=== PATIENT | male | born 1945 | race Caucasian/White ===

== ENCOUNTER 2023-11-30 14:08 | Outpatient (CLI) | payer MEDICARE, SELFPAY ==
[2023-11-30 10:27] LABS: HCT 40.8 % (40.0-50.0); HGB 14.1 g/dL (13.5-17.5); MCH 31.5 pg (27.0-33.0); MCHC 34.6 % (32.0-36.0); MCV 91 fL (80-95); MPV 10.1 fL (8.0-11.0); Platelet Count 216 10^3/uL (130-400); RBC 4.48 10^6/uL (4.36-5.78); RDW 14.6 % (11.8-14.1); RDW-SD 48.8 fL
[2023-11-30 10:43] LABS: Absolute Eosinophil Count 0.03 10^3/uL (0.0-0.7); Absolute Lymphocyte Count 0.64 10^3/uL (1.2-3.4); Absolute Monocyte Count 0.14 10^3/uL (0.1-0.8); Absolute Neutrophil Count 0.91 10^3/uL (1.2-6.7); Atypical Lymphocytes % 3 %; Bands % 4 %; Diff Comment Manual Differential; RBC Morphology Normal
[2023-11-30 10:47] LABS: WBC 1.72 10^3/uL (4.4-10.8)
[2023-11-30 10:54] LABS: ALT 70 U/L (16-63); AST 20 U/L (15-37); Albumin 3.3 g/dL (3.4-5.0); Alkaline Phosphatase 106 U/L (46-116); Anion Gap 5.5 mmol/L (3-11); BUN 22 mg/dL (7-18); Bilirubin, Total 0.88 mg/dL (0.2-1.0); CO2 29.5 mmol/L (21.0-32.0); Calcium 8.6 mg/dL (8.5-10.1); Chloride 102 mmol/L (98-107); Glucose 117 mg/dL (74-106); LDH 196 U/L (85-227); Potassium 4.2 mmol/L (3.5-5.1); Sodium 137 mmol/L (136-145); Total Protein 6.6 g/dL (6.4-8.2); Uric Acid 3.2 mg/dL (3.5-7.2)
== END 2023-11-30 14:09 | disposition home or self-care (01) ==
LOC: LBO 14:09
PROVIDERS: Visit Provider Nurse Practitioner Adult Health
DX: C83.30 Diffuse large B-cell lymphoma, unspecified site (principal)
CPT/HCPCS: 36415; 80053; 83615; 84550; 85025

== ENCOUNTER 2023-12-08 01:44 | Outpatient (RCR) | payer MEDICARE, SELFPAY ==
[2023-12-03 10:34] LABS: HCT 38.4 % (40.0-50.0); HGB 13.1 g/dL (13.5-17.5); MCH 31.6 pg (27.0-33.0); MCHC 34.1 % (32.0-36.0); MCV 93 fL (80-95); MPV 9.5 fL (8.0-11.0); Platelet Count 209 10^3/uL (130-400); RBC 4.14 10^6/uL (4.36-5.78); RDW 15.5 % (11.8-14.1); RDW-SD 50.2 fL; WBC 9.28 10^3/uL (4.4-10.8)
[2023-12-03 10:53] LABS: Absolute Eosinophil Count 0.09 10^3/uL (0.0-0.7); Absolute Lymphocyte Count 1.76 10^3/uL (1.2-3.4); Absolute Monocyte Count 0.74 10^3/uL (0.1-0.8); Atypical Lymphocytes % 3 %; Bands % 10 %; Diff Comment Manual Differential; Metamyelocytes % 3; RBC Morphology Normal
== END 2023-12-19 23:59 | disposition home or self-care (01) ==
LOC: INF 01:44
PROVIDERS: Visit Provider Internal Medicine Hematology & Oncology
DX: C83.32 Diffuse large B-cell lymphoma, intrathoracic lymph nodes (principal); Z45.2 Encounter for adjustment and management of vascular access device
CPT/HCPCS: 36415; 86850; 86900; 86901; 85025

== ENCOUNTER 2023-12-09 19:23 | Inpatient (IN) | payer MEDICARE, SELFPAY ==
[2023-12-09] VITALS (33 sets, daily range): BP systolic 95–129; BP diastolic 56–69; PULSE 97–108; RESP 12–29; TEMP 37; O2SAT 91–96
[2023-12-09 21:07] LABS: HGB 13.3 g/dL (13.5-17.5); Lactate 0.8 mmol/L (0.6-1.4); MCH 32.2 pg (27.0-33.0); MCV 92 fL (80-95); MPV 8.9 fL (8.0-11.0); Platelet Count 249 10^3/uL (130-400); RBC 4.13 10^6/uL (4.36-5.78); RDW-SD 52.9 fL; WBC 19.08 10^3/uL (4.4-10.8)
--- NOTE | 2023-12-09 21:15 | W.ED.GENAD ---
Discharge Plan Discharge Details Chief Complaint: RespSymp Clinical Impression: Large B-cell lymphoma Primary Care Provider: Unknown,Unknown ED Provider: Tiffanie Mcmillan Home Meds and New Rx's Prescriptions: No Action Eliquis 5 mg tablet 10 mg PO BID Patient Comments: TAKE TWO TABLETS BY MOUTH TWICE A DAY FOR 6 DAYS, THEN TAKE ONE TABLET BY MOUTH TWICE A DAY FOR 24 DAYS acyclovir 400 mg tablet 400 mg PO BID Patient Comments: TAKE ONE TABLET BY MOUTH TWICE A DAY codeine sulfate 15 mg tablet 15 mg PO BID PRN Patient Comments: TAKE ONE TABLET BY MOUTH TWICE A DAY NEEDED FOR PAIN OR EXCESSIVE COUGHING loratadine 10 mg tablet 10 mg PO DAILY finasteride 5 mg tablet 5 mg PO DAILY pantoprazole 40 mg tablet,delayed release (DR/EC) 40 mg PO DAILY Patient Comments: TAKE ONE TABLET BY MOUTH EVERY DAY HPI General Date/Time Provider Initiated Documentation: 12/09/23 19:58. HPI Narrative: Abdirahman is a 78-year-old male with large B-cell lymphoma, hypertension, and anticoagulation for blood clots who presents to the emergency department today for evaluation of fever. He reports that he has had a dry cough with sore throat and congestion for the last 3 to 4 days. This afternoon he took his temperature, found it was 101.3 tympanic, treated with Tylenol at home after discussion with oncologist. They did recommend that he come in to get evaluated due to the cough. He denies headache, dizziness, chest pain, shortness of breath, nausea/vomiting, abdominal pain, change in bowel or bladder function, pedal edema. Overall he says he is feeling well aside from the cough. he was diagnosed with large B-cell lymphoma a month ago after developing symptoms of cough, anorexia, and fatigue. His cough had initially disappeared for 10 days after treatment with dexamethasone, but has recently reappeared. He is being treated at [facility], is scheduled to have his port placed tomorrow for inpatient R-CHOP treatment (chemotherapy regimen). His reports that he has had tachycardia since diagnosis, heart rate has been consistently in the 100s range. Physical exam very reassuring. Patient is alert and oriented, no acute distress. He does have a frequent dry cough. Easy work of breathing, lung sounds clear bilaterally. Normal heart sounds, mild tachycardia with heart rate in the low 100s noted. Abdomen soft, nondistended, nontender to palpation. No pedal edema. DDx includes but is not limited to: Pneumonia, viral illness such as COVID-19, metastasis less likely I independently interpreted the following tests: CBC remarkable for white cell count elevated at 19.08. Slightly elevated BUN to creatinine ratio 1.3-26, likely mild dehydration. AST, ALT, and alk phos slightly elevated as well. Chest x-ray does show infiltrates to the left lobe. While in the emergency department Abdirahman received IV vancomycin (to cover hospital-acquired pneumonia during recent hospitalization), cefepime, and azithromycin. Discussed case with Dr. Albarran, [facility] oncology. Reviewed patient presentation and labs. She recommends continuing antibiotics, trending inflammatory markers, and consulting with [facility] as needed for any changes. She does not feel patient needs to be transferred to [facility] at this time. Presented case to Dr. Mai, hospitalist. He is agreeable to admit patient to [facility] service. Related Data Home Medications ?Medication ?Instructions ?Recorded ?Confirmed acyclovir 400 mg tablet 400 mg PO BID 12/09/23 12/09/23 apixaban 5 mg tablet (Eliquis) 10 mg PO BID 12/09/23 12/09/23 codeine sulfate 15 mg tablet 15 mg PO BID PRN 12/09/23 12/09/23 finasteride 5 mg tablet 5 mg PO DAILY 12/09/23 12/09/23 loratadine 10 mg tablet 10 mg PO DAILY 12/09/23 12/09/23 pantoprazole 40 mg tablet,delayed 40 mg PO DAILY 12/09/23 12/09/23 release Allergies Allergy/AdvReac Type Severity Reaction Status Date / Time No Known Allergies Allergy Verified 12/09/23 22:49 General Stated Complaint: RespSymp CLARIBEL: 3 Review of Systems Narrative: see HPI Exam Const General: cooperative, healthy appearing, comfortable, no acute distress, well developed and well groomed Nutritional Appearance: average body habitus Resp Effort & Inspection: normal respiratory effort, able to speak in complete sentences and cough Auscultation: clear to auscultation bilaterally Cardio Rate: tachycardic Rhythm: regular rhythm Pulses: radial pulses present GI Inspection: normal to inspection and non-distended Palpation: soft, not firm and nontender Skin General skin exam: no rashes or lesions noted Neuro General: patient alert, patient oriented x3, moves all extremities and no focal motor deficits Course Vital Signs Vital signs: Vital Signs Temperature 37.0 C 12/09/23 19:28 Pulse 108 H 12/09/23 19:28 Respiratory Rate 20 12/09/23 19:28 Blood Pressure 101/61 12/09/23 19:28 Pulse Oximetry 92 12/09/23 19:28 Temperature 37.0 C 12/09/23 19:28 Temperature Source Oral 12/09/23 19:28 Pulse 108 H 12/09/23 19:28 Respiratory Rate 20 12/09/23 19:28 Blood Pressure 101/61 12/09/23 19:28 Blood Pressure Position Sitting 12/09/23 19:28 Pulse Oximetry 92 12/09/23 19:28 Oxygen Delivery Method Room Air 12/09/23 19:28 Oxygen Flow Rate 0 12/09/23 19:28 Lab/Test Results Lab/Test Results: 12/09/23 20:18 Pharynx Group A Streptococcus Culture - Pending 12/09/23 19:58 Blood Blood Culture - Pending 12/09/23 19:58 Blood Blood Culture - Pending Laboratory Tests Range/Units 12/09/23 20:58 VBG Lactate (0.6-1.4) mmol/L 0.8 POC Strep Test-MITA(Rapid) Start: 12/09/23 20:16 Freq: .Rapid Strep Test Status: Active Protocol: Document 12/09/23 20:17 CB (Rec: 12/09/23 20:17 CB [id number]) Strep test-MITA(Rapid)-POC POC-Strep test-MITA (Rapid) Negative POC-Strep test-MITA (Rapid) Negative Medical Decision Making Quality:SDOH Health Related Social Needs: No Data to Display PFSH All Active Problems (Updated 12/09/23 @ 21:16 by Tiffanie Barnes) Large B-cell lymphoma (Acute) Wears hearing aid in both ears (Acute) Sensorineural hearing loss, bilateral (Acute) Sensory hearing loss, bilateral (Acute) Social History (System 02/20/22 @ 07:34 by Yas Don) Smoking/Tobacco Use Status: Never Smoking risk assessment performed?: Yes Substance use type: does not use
[2023-12-09 21:26] LABS: ALT 99 U/L (16-63); AST 42 U/L (15-37); Albumin 2.6 g/dL (3.4-5.0); Alkaline Phosphatase 124 U/L (46-116); Anion Gap 8.3 mmol/L (3-11); BUN 26 mg/dL (7-18); Bilirubin, Total 0.88 mg/dL (0.2-1.0); CO2 23.7 mmol/L (21.0-32.0); CREATININE 1.3 mg/dL (0.70-1.30); Chloride 101 mmol/L (98-107); Estimated GFR 56.93 (mL/min/1.73m2); Glucose 130 mg/dL (74-106); Magnesium 1.9 mg/dL (1.8-2.4); Potassium 4.1 mmol/L (3.5-5.1); Sodium 133 mmol/L (136-145); Total Protein 6.6 g/dL (6.4-8.2)
[2023-12-09 21:38] LABS: Absolute Lymphocyte Count 0.95 10^3/uL (1.2-3.4); Absolute Monocyte Count 1.14 10^3/uL (0.1-0.8); Atypical Lymphocytes % 3 %; Bands % 4 %; Metamyelocytes % 3
[2023-12-09 21:39] LABS: Absolute Neutrophil Count 16.41 10^3/uL (1.2-6.7); Diff Comment Manual Differential; RBC Morphology Normal
[2023-12-09 21:46] LABS: Bilirubin Negative (Negative); Blood Trace-lysed (Negative); Clarity Clear (Clear); Glucose Negative (Negative); Ketones Negative (Negative); Leukocyte Esterase Negative (Negative); Nitrite Negative (Negative); Urobilinogen 0.2 mg/dL (Up to 0.2); pH 5.5 (5-8)
[2023-12-09 22:02] LABS: Bacteria Rare HPF (Negative); C & S Indicated? No; Casts 0-2 Hyaline LPF (Negative); Crystals Negative HPF (Negative); Epithelial Cells Rare HPF (Negative); Mucus Trace (Negative); Other Cells Rare Transitional (Negative); RBC 0-2 HPF (0-2); WBC 0-2 HPF (0-5)
--- NOTE | 2023-12-09 22:15 | DI.RAD_ITS ---
Exam(s) XR CHEST 2V PA LATERAL EXAM: XR CHEST 2V PA LATERAL CLINICAL HISTORY: fever, cough TECHNIQUE: 2D digital imaging was performed. Two views. COMPARISON: None FINDINGS: HEART: Normal size. Aorta: Not dilated. PULMONARY VASCULATURE: Normal. MEDIASTINUM: Unremarkable. LUNGS: Diffusely increased patchy densities involving the left lung. The right lung appears clear. Slight left-sided volume loss. PLEURAL SPACE: No pleural effusion or pneumothorax. BONE:Degenerative changes in the thoracic spine and shoulders. Prior surgical resection of the left distal clavicle. SOFT TISSUES: Unremarkable. IMPRESSION: Diffuse left-sided pulmonary infiltrates. DATA REPOSITORY: RADIATION DOSE DELIVERED:
[2023-12-09] MEDS: CEFEPIME 2 GM in Normal Saline 100 ML IVPB (22:43)
[2023-12-09] MEDS: AZITHROMYCIN 500 MG in Normal Saline 250 ML 250 MG IVPB (23:22)
[2023-12-09 23:35] LABS: ESR 51 mm/hr (0-20)
[2023-12-09 23:41] LABS: C-Reactive Protein 13.56 mg/dL (<or=0.5)
[2023-12-09] MEDS: Normal Saline - Diluent 50 ML VIAL IJ (23:54)
[2023-12-09] MEDS: Omnipaque 350 MG/ML 100 ML BTL IJ (23:55)
[2023-12-09] MEDS: Normal Saline 1,000 ML 125 ML IV (23:56)
[2023-12-09 23:59] LABS: Procalcitonin 0.1 ng/mL
[2023-12-10] VITALS (65 sets, daily range): BP systolic 86–152; BP diastolic 34–95; PULSE 98–120; RESP 11–33; TEMP 36.7–38.5; O2SAT 89–97; BMI 23.8
--- NOTE | 2023-12-10 00:12 | HPE_ITS ---
Date of service: 12/10/23 Time of Service: 00:17 Assessment and Plan Assessment and plan (1) Fever: Status: Acute Assessment and plan: Cough and fever, with leukocytosis and elevated inflammatory marking, in setting of atypical CXR findings. In one respect one could cohere this as pneumonia, but I would also wonder if it is possible that the symptom complex may be solely due to underlying tumor. Will presumptively treat with empiric antibiotics -- I think cefepime and Zithro will be adequate for now, will hold further Vanco pending cxx and nasal swab. ER has ordered CT for further evaluation of chest in meantime, and swab for viral illness. History of Present Illness History of Present Illness Chief Complaint: cough Narrative: 78 male with recent diagnosis lymphoma presenting last month with dry cough and large right perihilar mass. States he was treated with Dexamethasone with resolution of cough. Comes in tonight with 2 days of dry cough, similar to prior episode but less intense, and today fever to 101.3. No CP or SOB. In ER w/u of note for afebrile with O2 sats in mid 90s, white count 19 and CXR showing no definite infiltrate but generally increased interstitial marking on left (my read, formal read pending). CRP 13 and ESR 51. Blood cxx obtained and patient ordered for Vanco, Cefepime and Zithro. I was asked to evaluate for admission. Patient states that aside from cough he feels perfectly well. Note that in ER note it is re[ported that he also had sore throat and head congestion but this he denies to me. Review of Systems Narrative: per HPI PFSH All Active Problems (Updated 12/10/23 @ 00:27 by Laci Mai MD) Fever (Acute) Pneumonia (Acute) Large B-cell lymphoma (Acute) Wears hearing aid in both ears (Acute) Sensorineural hearing loss, bilateral (Acute) Sensory hearing loss, bilateral (Acute) Social History Smoking/Tobacco Use Status: Never Smoking risk assessment performed?: Yes Substance use type: does not use Meds Allergies and Home Medications Allergies Allergy/AdvReac Type Severity Reaction Status Date / Time No Known Allergies Allergy Verified 12/09/23 22:49 Home Medications ?Medication ?Instructions ?Recorded ?Confirmed ?Type acyclovir 400 mg tablet 400 mg PO BID 12/09/23 12/09/23 History apixaban 5 mg tablet (Eliquis) 10 mg PO BID 12/09/23 12/09/23 History codeine sulfate 15 mg tablet 15 mg PO BID PRN 12/09/23 12/09/23 History finasteride 5 mg tablet 5 mg PO DAILY 12/09/23 12/09/23 History loratadine 10 mg tablet 10 mg PO DAILY 12/09/23 12/09/23 History pantoprazole 40 mg tablet,delayed 40 mg PO DAILY 12/09/23 12/09/23 History release Exam Narrative Exam Narrative: 101/61, 108 (note that he reports he always has pulse in this range), 37.0, 20 92% RA (95% during my visit). HEENT atraumatic; neck supple w/o adeopathy; lungs clear; heart RRR w/o MRG; abdomen soft and NT; extremities w/o edema; neuro Ox3, lucid, moves all 4s Results Labs 12/09/23 20:58 12/09/23 20:58 Labs: Laboratory Results - last 24 hr 12/09/23 20:58 WBC 19.08 H RBC 4.13 L Hgb 13.3 L Hct 38.0 L MCV 92 MCH 32.2 MCHC 35.0 RDW 16.0 H Plt Count 249 MPV 8.9 Immature Gran % See Differential Neutrophils % 82.0 Band Neutrophils % 4 Lymphocytes % 2.0 Atypical Lymphs % 3 Monocytes % 6.0 Eosinophils % 0.0 Basophils % 0.0 Metamyelocytes % 3 Nucleated RBC % 0.0 Absolute Neutrophils 16.41 H Absolute Lymphocytes 0.95 L Absolute Monocytes 1.14 H Absolute Eosinophils 0.00 Absolute Basophils 0.00 RBC Morphology Normal ESR 51 H VBG Lactate 0.8 Sodium 133 L Potassium 4.1 Chloride 101 Carbon Dioxide 23.7 Anion Gap 8.3 BUN 26 H Creatinine 1.3 Est GFR (CKD-EPI 2020) 56.93 Glucose 130 H Calcium 9.0 Magnesium 1.9 Total Bilirubin 0.88 AST 42 H ALT 99 H Alkaline Phosphatase 124 H C-Reactive Protein 13.56 H Total Protein 6.6 Albumin 2.6 L Procalcitonin 0.1 Urine Color Yellow Urine Clarity Clear Urine pH 5.5 Ur Specific [place] 1.020 Urine Protein 30 H Urine Ketones Negative Urine Blood Trace-lysed H Urine Nitrite Negative Urine Bilirubin Negative Urine Urobilinogen 0.2 Ur Leukocyte Esterase Negative Urine RBC 0-2 Urine WBC 0-2 Ur Epithelial Cells Rare Urine Crystals Negative Urine Bacteria Rare Urine Casts 0-2 Hyaline Urine Mucus Trace Urine Other Rare Transitional Ur Culture Indicated? No Urine Glucose Negative Last Vital Signs Temp 37.0 C 12/09/23 19:28 Pulse 108 H 12/09/23 19:28 Resp 20 12/09/23 19:28 BP 101/61 12/09/23 19:28 Pulse Ox 92 12/09/23 19:28 Time Spent Time spent with Patient: 40-54 minutes Time was spent: preparing to see the patient(eg.review tests), obtaining and/or reviewing separately [facility], ordering medications,tests, procedures, referring, communicating with other health manager long term care and indepentently interpreting results
--- NOTE | 2023-12-10 00:20 | DI.VRAD_ITS ---
PROCEDURE INFORMATION: Exam: XR Chest Exam date and time: 12/09/2023 11:01 PM Age: 78 years old Clinical indication: Other: Fever, cough TECHNIQUE: Imaging protocol: Radiologic exam of the chest. Views: 2 views. COMPARISON: No relevant prior studies available. FINDINGS: Limitations: Patient positioning is rotated. Lungs: There is diffusely increased hazy pulmonary density on the left. Pleural spaces: No pleural effusion or pneumothorax is demonstrated. Heart/Mediastinum: The heart appears normal in size. There is leftward displacement of the heart, possibly from rotated patient positioning although mediastinal shift is not confidently excluded. Bones/joints: The visualized bony structures appear grossly intact. There are osteophytes along the thoracic spinal margin. There is partial resorption of the distal left clavicle. There is severe degenerative change at the right acromioclavicular joint. There is mild asymmetric rib crowding on the left. IMPRESSION: Diffusely increased hazy pulmonary density on the left. An acute pulmonary infection could have this appearance. Atelectasis of the left upper lobe would be an alternative consideration. Alternative pathology is not excluded. Clinical correlation is recommended. Dictated and Authenticated by: Kang Rodriguez MD. Ordering:RUBIO Moreno MD
[2023-12-10 00:38] LABS: COVID-19 PCR Negative (Negative); Influenza A PCR Negative (Negative); Influenza B PCR Negative (Negative); RSV PCR Negative (Negative)
--- NOTE | 2023-12-10 00:45 | DI.CT_ITS ---
Exam(s) CT CHEST W EXAM: CT CHEST W CLINICAL HISTORY: cough, abnormal CXR TECHNIQUE: Imaging Protocol: Axial computed tomography images with coronal and sagittal reformatted images were created and reviewed CONTRAST MATERIAL: Intravenous: Omnipaque 350 Contrast volume:70 ml. COMPARISON: CR,XR XR CHEST 2V PA LATERAL from 12/09/2023 FINDINGS: Pulmonary parenchyma: Diffuse hazy ground-glass opacities involving the left lung. No consolidation. No dominant measurable mass. Scattered calcified granulomas in the right middle and lower lobes. Tracheobronchial tree: No bronchiectasis or mucous plugging. Mediastinum and Renetta: Confluent mass versus adenopathy in the right paratracheal and subcarinal regio n with heterogeneous appearance and calcifications. Approximate measurements 4.2 x 3.9 x 7.3 cm. Ri ght paratracheal adenopathy/mass measures 1.6 x 3 0 cm. Pleura: Trace right pleural effusion. No pneumothorax. Heart: The heart is not dilated. No coronary artery calcifications are seen. Aorta: Thoracic aorta non-dilated. No significant atherosclerotic changes. Pulmonary arteries: No gross evidence of emboli. Upper abdomen: No acute findings. Status post cholecystectomy. Right renal cysts. Bones: Degenerative changes in the spine. Soft tissues: Calcifications in left axilla. IMPRESSION: Diffuse ground-glass infiltrate involving the left lung. No focal consolidation. Mass versus adenopathy the in the right subcarinal and right paratracheal regions. Unexpected findings RADIATION DOSE DELIVERED: Total DLP DATA REPOSITORY: All CT scans at this facility are submitted to the National Radiology Data Registry (NRDR) Dose Index Registry (DIR) with the [employer] (ACR). RADIATION OPTIMIZATION: All CT scans at this facility use at least one of these dose optimization te chniques: automated exposure control; mA and/or kV adjustment per patient size (includes targeted exa ms where dose is matched to clinical indication); or iterative reconstruction.
[2023-12-10 00:47] LABS: Source Nasopharynx
--- NOTE | 2023-12-10 01:28 | DI.VRAD_ITS ---
PROCEDURE INFORMATION: Exam: CT Chest With Contrast; Diagnostic Exam date and time: 12/10/2023 12:44 AM Age: 78 years old Clinical indication: Abnormal findings; Abnormal radiologic exam of lung or chest; Cough; Additional info: Cough, abnormal cxr TECHNIQUE: Imaging protocol: Diagnostic computed tomography of the chest with contrast. 3D rendering (Not supervised by radiologist): MIP and/or 3D reconstructed images were created by the technologist. Contrast material: OMNI 350; Contrast volume: 70 ml; Contrast route: INTRAVENOUS (IV); COMPARISON: CR XR CHEST 2V PA LATERAL 12/09/2023 11:01 PM FINDINGS: Thyroid: Normal-sized thyroid gland. Lungs: Extensive patchy hazy ground-glass opacity throughout the left lung. No region of carolyn pulmonary consolidation. Pleural spaces: Small right pleural effusion. No left-sided pleural effusion. No pneumothorax. Heart: Normal-sized heart. Normal-sized heart. Lymph nodes: 4.2 cm x 3.9 cm x 7.3 cm partially calcified heterogeneous mass centered in the subcarinal region and to the right of the esophagus with apparent tethering of the lower esophagus, images 117-192 of series 2. Central calcifications demonstrated on image 145 of series 2. Similar appearing contiguous heterogeneous mass in the pretracheal region extending from image 16 through image 28 of series 4 measuring 1.6 cm x 3.0 cm in the right paratracheal region on image 22 of series 4. No axillary adenopathy. Vasculature: No thoracic aortic aneurysm or dissection. No pulmonary embolism seen in the pulmonary trunk, main pulmonary arteries, or proximal segmental pulmonary artery branches. The small and distal pulmonary arteries are not well evaluated for diagnosis or exclusion of small or distal pulmonary emboli. Gallbladder and biliary ducts: Prior cholecystectomy. No biliary dilatation. Kidneys and ureters: Kidneys partially included in the field of view. Right renal cysts measuring 3.3 cm on image 302, 3.7 cm laterally on image 323, and 2.3 cm medially on image 324 of series 2. Subcentimeter indeterminate hypoattenuating left renal lesions, not well characterized by today's exam but statistically most likely additional small cysts. Renal cortical scarring partially visualized on the left. Bones/joints: Lower ribs partially excluded from view and incompletely evaluated. Otherwise, no acute fracture seen among the bones of the chest. Old well corticated fracture through the left L1 transverse process versus a developmental appearance with a tiny vestigial rib on the left. Soft tissues: No gross soft tissue mass or fluid collection seen in the chest wall. IMPRESSION: 1. Unusual bulky, grossly abnormal irregularly shaped heterogeneous masslike soft tissue in the mediastinum, as described. Although this finding is of uncertain etiology, a malignant neoplasm should be primarily excluded. An esophageal neoplasm or malignant adenopathy could probably have this appearance. Alternative pathology is not excluded. 2. Extensive patchy hazy ground-glass pulmonary opacity throughout the left lung. No region of carolyn pulmonary consolidation. An acute pulmonary infection is suspected primarily. Alternative pathology is not excluded. 3. Small right pleural effusion. Dictated and Authenticated by: Kang Rodriguez MD. Ordering:RUBIO Moreno MD
[2023-12-10] MEDS: Acetaminophen 325 MG TAB 650 MG PO (02:58)
--- NOTE | 2023-12-10 06:38 | W.PC.ACHO ---
Registration Status: Primary Language: Preferred Language: ED Information & Data Chief Complaint RespSymp 12/09/23 21:33 Chief Complaint RespSymp 12/09/23 21:21 Triage Note Cough starting 12/03 noticed 12/09/23 19:28 fever today (101.3 at the highest) took tylenol at home (1000mg) with improvement. Painful, dry productive cough. not improving over time. Most Recent Vital Signs Temperature 36.9 C 12/10/23 01:28 Temperature Source Tympanic 12/10/23 01:22 Pulse 104 H 12/10/23 02:08 Pulse Rhythm Regular 12/10/23 01:28 Respiratory Rate 20 12/10/23 01:28 Respiratory Effort Normal 12/10/23 01:28 Respiratory Depth Normal 12/10/23 01:28 Respiratory Pattern Normal 12/10/23 01:28 Blood Pressure 131/72 12/10/23 01:28 Blood Pressure Position Sitting 12/09/23 19:28 Pulse Oximetry 95 12/10/23 01:28 Oxygen Delivery Method Room Air 12/10/23 01:28 Oxygen Flow Rate 0 12/10/23 01:28 Pain Level 4 12/10/23 02:58 Allergies No Known Allergies Allergy (Verified 12/09/23 22:49) Active Medications Generic Name Dose Route Start Last Admin Trade Name Freq PRN Reason Stop Dose Admin Acetaminophen 650 mg 12/10/23 00:35 12/10/23 02:58 Acetaminophen 325 Mg Tab PO 650 mg Q4H PRN PRN Administration Sodium Chloride 1,000 mls @ 125 mls/hr 12/09/23 23:45 12/10/23 05:17 Saline 1000ml Bag IV Infused INFUSION CARLOS MANUEL Infusion Cefepime HCl 1 gm/ Sodium 50 mls @ 100 mls/hr 12/10/23 00:45 12/10/23 01:25 Chloride IVPB Not Given Q8H CARLOS MANUEL Iohexol 100 ml 12/09/23 23:45 12/09/23 23:55 Omnipaque 350 Mg/Ml 100 Ml Btl IJ 01/08/24 23:59 70 ml DIRECTED CARLOS MANUEL Administration Sodium Chloride 50 ml 12/09/23 23:45 12/09/23 23:54 Normal Saline - Diluent 50 Ml Vial IJ 50 ml .FOR DI USE CARLOS MANUEL Administration IV IV Catheter Type [Left Saline Lock Antecubital] IV Catheter Gauge [Left 20 Antecubital] Diet Orders Category Date Time Status Regular/Normal [DIET] Nutrition 12/10/23 Lunch Active Diagnostics 12/10/23 12/10/23 12/09/23 Range/Units 06:15 05:35 23:54 WBC Pending (4.4-10.8) 10^3/uL RBC Pending (4.36-5.78) 10^6/uL Hgb Pending (13.5-17.5) g/dL Hct Pending (40.0-50.0) % MCV Pending (80-95) fL MCH Pending (27.0-33.0) pg MCHC Pending (32.0-36.0) % RDW Pending (11.8-14.1) % Plt Count Pending (130-400) 10^3/uL MPV Pending (8.0-11.0) fL Immature Gran % Neutrophils % % Band Neutrophils % % Lymphocytes % % Atypical Lymphs % % Monocytes % % Eosinophils % % Basophils % % Metamyelocytes % Nucleated RBC % (0.0-0.3) % Absolute Neutrophils (1.2-6.7) 10^3/uL Absolute Lymphocytes (1.2-3.4) 10^3/uL Absolute Monocytes (0.1-0.8) 10^3/uL Absolute Eosinophils (0.0-0.7) 10^3/uL Absolute Basophils (0.0-0.2) 10^3/uL RBC Morphology ESR (0-20) mm/hr VBG Lactate (0.6-1.4) mmol/L Sodium (136-145) mmol/L Potassium (3.5-5.1) mmol/L Chloride (98-107) mmol/L Carbon Dioxide (21.0-32.0) mmol/L Anion Gap (3-11) mmol/L BUN (7-18) mg/dL Creatinine (0.70-1.30) mg/dL Est GFR (CKD-EPI 2020) (mL/min/1.73m2) Glucose (74-106) mg/dL Calcium (8.5-10.1) mg/dL Magnesium (1.8-2.4) mg/dL Total Bilirubin (0.2-1.0) mg/dL AST (15-37) U/L ALT (16-63) U/L Alkaline Phosphatase (46-116) U/L C-Reactive Protein (<or=0.5) mg/dL Total Protein (6.4-8.2) g/dL Albumin (3.4-5.0) g/dL Procalcitonin ng/mL Urine Color (Yellow) Urine Clarity (Clear) Urine pH (5-8) Ur Specific [place] (1.005-1.025) Urine Protein (Neg-Trace) mg/dL Urine Ketones (Negative) mg/dL Urine Blood (Negative) Urine Nitrite (Negative) Urine Bilirubin (Negative) Urine Urobilinogen (Up to 0.2) mg/dL Ur Leukocyte Esterase (Negative) Urine RBC (0-2) HPF Urine WBC (0-5) HPF Ur Epithelial Cells (Negative) HPF Urine Crystals (Negative) HPF Urine Bacteria (Negative) HPF Urine Casts (Negative) LPF Urine Mucus (Negative) Urine Other (Negative) Ur Culture Indicated? Urine Glucose (Negative) mg/dL COVID-19 Source Nasopharynx SARS-CoV-2 (PCR) Negative (Negative) Influenza Type A (PCR) Negative (Negative) Influenza Type B (PCR) Negative (Negative) Urine Legionella Ag Pending RSV (PCR) Negative (Negative) 12/09/23 Range/Units 20:58 WBC 19.08 H (4.4-10.8) 10^3/uL RBC 4.13 L (4.36-5.78) 10^6/uL Hgb 13.3 L (13.5-17.5) g/dL Hct 38.0 L (40.0-50.0) % MCV 92 (80-95) fL MCH 32.2 (27.0-33.0) pg MCHC 35.0 (32.0-36.0) % RDW 16.0 H (11.8-14.1) % Plt Count 249 (130-400) 10^3/uL MPV 8.9 (8.0-11.0) fL Immature Gran % See Differential Neutrophils % 82.0 % Band Neutrophils % 4 % Lymphocytes % 2.0 % Atypical Lymphs % 3 % Monocytes % 6.0 % Eosinophils % 0.0 % Basophils % 0.0 % Metamyelocytes % 3 Nucleated RBC % 0.0 (0.0-0.3) % Absolute Neutrophils 16.41 H (1.2-6.7) 10^3/uL Absolute Lymphocytes 0.95 L (1.2-3.4) 10^3/uL Absolute Monocytes 1.14 H (0.1-0.8) 10^3/uL Absolute Eosinophils 0.00 (0.0-0.7) 10^3/uL Absolute Basophils 0.00 (0.0-0.2) 10^3/uL RBC Morphology Normal ESR 51 H (0-20) mm/hr VBG Lactate 0.8 (0.6-1.4) mmol/L Sodium 133 L (136-145) mmol/L Potassium 4.1 (3.5-5.1) mmol/L Chloride 101 (98-107) mmol/L Carbon Dioxide 23.7 (21.0-32.0) mmol/L Anion Gap 8.3 (3-11) mmol/L BUN 26 H (7-18) mg/dL Creatinine 1.3 (0.70-1.30) mg/dL Est GFR (CKD-EPI 2020) 56.93 (mL/min/1.73m2) Glucose 130 H (74-106) mg/dL Calcium 9.0 (8.5-10.1) mg/dL Magnesium 1.9 (1.8-2.4) mg/dL Total Bilirubin 0.88 (0.2-1.0) mg/dL AST 42 H (15-37) U/L ALT 99 H (16-63) U/L Alkaline Phosphatase 124 H (46-116) U/L C-Reactive Protein 13.56 H (<or=0.5) mg/dL Total Protein 6.6 (6.4-8.2) g/dL Albumin 2.6 L (3.4-5.0) g/dL Procalcitonin 0.1 ng/mL Urine Color Yellow (Yellow) Urine Clarity Clear (Clear) Urine pH 5.5 (5-8) Ur Specific [place] 1.020 (1.005-1.025) Urine Protein 30 H (Neg-Trace) mg/dL Urine Ketones Negative (Negative) mg/dL Urine Blood Trace-lysed H (Negative) Urine Nitrite Negative (Negative) Urine Bilirubin Negative (Negative) Urine Urobilinogen 0.2 (Up to 0.2) mg/dL Ur Leukocyte Esterase Negative (Negative) Urine RBC 0-2 (0-2) HPF Urine WBC 0-2 (0-5) HPF Ur Epithelial Cells Rare (Negative) HPF Urine Crystals Negative (Negative) HPF Urine Bacteria Rare (Negative) HPF Urine Casts 0-2 Hyaline (Negative) LPF Urine Mucus Trace (Negative) Urine Other Rare Transitional (Negative) Ur Culture Indicated? No Urine Glucose Negative (Negative) mg/dL COVID-19 Source SARS-CoV-2 (PCR) (Negative) Influenza Type A (PCR) (Negative) Influenza Type B (PCR) (Negative) Urine Legionella Ag RSV (PCR) (Negative) 12/09/23 20:58 Blood Culture - Pending Blood 12/09/23 19:53 Group A Streptococcus Culture - Pending Pharynx 12/09/23 21:15 Blood Culture - Pending Blood [id number] Documentation POC Strep Test-MITA(Rapid) Start: 12/09/23 20:16 Freq: .Rapid Strep Test Status: Active Protocol: Activity Type Activity Date Activity User E-sign Co-sign Detail Recorded Client Recorded Date Recorded By Document 12/09/23 20:17 CB [id number] 12/09/23 20:17 CB Intake and Output - 24 Hour Total 12/09/23 19:23 thru 12/10/23 05:17 Intake Total 1268.75 Output Total 175 Balance 1093.75 Weight 63.04 kg Intake: IV 1268.75 Output: Urine 175 Other: Urine Color Light [place] Risk Assessment History of Falls No History 12/10/23 01:28 Contributing Factors No Factors 12/10/23 01:28 Ambulatory Aids Independent 12/10/23 01:28 Tubes/Lines None 12/10/23 01:28 Gait Evaluation No gait disturbance 12/10/23 01:28 Cognition No cognitive impairment 12/09/23 21:33 Fall Total Score 0 12/10/23 01:28 Level of Risk Standard/Low Risk 12/10/23 01:28 Problems (Last Reviewed 12/10/23 @ 00:24 by Laci Mai MD) Fever (Acute) Pneumonia (Acute) Large B-cell lymphoma (Acute) v v v v v v v v v Sending and/or Receiving Nurses: Please use comment section below to note any information pertinent to the patient hand-off not included above. Information / Comments: Patient with recent diagnosis of lymphoma presents to ED with cough and fevers. Patient recently treatment with Dexamethasone for lymphoma and states had improvement in cough. Presentation along with CXR likely pneumonia. Treating with IV abx. Patient was supposed to have port placed today in order to initiate chemo next week. Report received from: PORTIA Mittal RN
[2023-12-10 07:19] LABS: HCT 37.1 % (40.0-50.0); HGB 12.5 g/dL (13.5-17.5); MCH 31.3 pg (27.0-33.0); MCHC 33.7 % (32.0-36.0); MCV 93 fL (80-95); MPV 9.2 fL (8.0-11.0); Platelet Count 235 10^3/uL (130-400); RDW 15.9 % (11.8-14.1); RDW-SD 53.7 fL; WBC 14.58 10^3/uL (4.4-10.8)
[2023-12-10] MEDS: CEFEPIME 1 GM in Normal Saline 50 ML IVPB ×2 (08:44→16:43)
[2023-12-10] MEDS: Finasteride 5 MG TAB PO (08:45)
[2023-12-10] MEDS: Acyclovir 400 MG TAB PO ×2 (08:45→21:05)
[2023-12-10] MEDS: Loratidine 10 MG TAB PO (08:45)
[2023-12-10] MEDS: Pantoprazole 40 MG TABCR PO (08:45)
--- NOTE | 2023-12-10 10:17 | PUCON_ITS ---
General Date Of Service Date of service: 12/10/23 Time of Service: 10:00 Requesting physician: Pro New Reason for Consult: ADY infiltrate, diffuse large B-cell lymphoma Recommendations: Bronch with BAL. 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 I have spoken with his oncologist Jil Jones at [facility] and plan is in agreement for a bronchoscopy with BAL on the left upper lobe for further investigation. Agree with broad-spectrum antibiotics with cefepime, Vanco, azithromycin until further investigation is returned. Plan for procedure at 1600 today after 8 hours of fasting. He will be transferred to the ICU for close monitoring afterwards. (2) Large B-cell lymphoma: Status: Acute (3) Sepsis: Status: Acute Qualifiers: Sepsis acute organ dysfunction status: unspecified Sepsis type: sepsis due to unspecified organism Qualified Code(s): A41.9 - Sepsis, unspecified organism History of Present Illness Narrative: 78 male with recent diagnosis of diffuse large B cell lymphoma after presenting with some shortness of breath and dry cough and found to have a very large right hilar mass. He underwent EBUS with FNA being positive for large B-cell lymphoma. Since then he has seen oncologist/hematology and was started on R?CHOP 3 weeks ago and plan was to proceed with EPOCH the following week. Over the past week he has been having progressive intractable cough and last night had a fever and presented to the emergency room. Chest x-ray consistent with left-sided pneumonia followed by chest CT did confirm patchy groundglass opacities diffusely on the left lung and an unchanged right hilar mass. He has a history of PE on the right side and has been on Eliquis since. Vancomycin, cefepime and azithromycin started Review of Systems Narrative: 12 point ROS otherwise negative PFSH All Active Problems (Updated 12/10/23 @ 14:48 by Genoveva Pierre MD) Sepsis (Acute) Opacity of lung on imaging study (Acute) Fever (Acute) Pneumonia (Acute) Large B-cell lymphoma (Acute) Wears hearing aid in both ears (Acute) Sensorineural hearing loss, bilateral (Acute) Sensory hearing loss, bilateral (Acute) Social History Smoking/Tobacco Use Status: Never Smoking risk assessment performed?: Yes Substance use type: does not use Visit Medication and Allergies Active Medications Generic Name Dose Route Start Last Admin Trade Name Freq PRN Reason Stop Dose Admin Acetaminophen 650 mg 12/10/23 00:35 12/10/23 02:58 Acetaminophen 325 Mg Tab PO 650 mg Q4H PRN PRN Administration Acyclovir 400 mg 12/10/23 08:30 12/10/23 08:45 Acyclovir 400 Mg Tab PO 400 mg BID CARLOS MANUEL Administration Apixaban 5 mg 12/10/23 10:00 Apixaban 5 Mg Tab PO BID CARLOS MANUEL Finasteride 5 mg 12/10/23 08:30 12/10/23 08:45 Finasteride 5 Mg Tab PO 5 mg DAILY CARLOS MANUEL Administration Sodium Chloride 1,000 mls @ 125 mls/hr 12/09/23 23:45 12/10/23 05:17 Saline 1000ml Bag IV Infused INFUSION CARLOS MANUEL Infusion Azithromycin 250 mg/ Sodium 250 mls @ 250 mls/hr 12/11/23 00:00 Chloride IVPB Q24H CARLOS MANUEL Cefepime HCl 1 gm/ Sodium 50 mls @ 100 mls/hr 12/10/23 08:00 12/10/23 08:44 Chloride IVPB 100 mls/hr Q8H CARLOS MANUEL Administration Vancomycin/PEG/NADA/Lysine/Water 1 gm in 200 mls @ 133.333 mls/hr 12/10/23 12:00 Vancocin Injection IVPB Q24H CARLOS MANUEL Sodium Chloride 500 mls @ 0 mls/hr 12/10/23 10:00 Saline 500ml Bag IV DIRECTED PRN As Directed IV Miscellaneous Supplies 1 each 12/10/23 10:00 Iv Access IV DIRECTED CARLOS MANUEL Loratadine 10 mg 12/10/23 08:30 12/10/23 08:45 Loratidine 10 Mg Tab PO 10 mg DAILY CARLOS MANUEL Administration Melatonin 6 mg 12/10/23 09:53 Melatonin 3 Mg Tab PO HS PRN PRN Insomnia Pantoprazole Sodium 40 mg 12/11/23 07:30 Pantoprazole 40 Mg Tabcr PO DAILY@0730 CARLOS MANUEL Sodium Chloride 0 ml 12/10/23 10:00 Normal Saline Flush 10 Ml Syr IVP PRN PRN Allergies No Known Allergies Allergy (Verified 12/09/23 22:49) Results Last Vital Signs Temp 37.1 C 12/10/23 07:23 Pulse 101 H 12/10/23 07:23 Resp 17 12/10/23 07:23 BP 110/52 L 12/10/23 07:23 Pulse Ox 93 12/10/23 07:23 Labs 12/10/23 06:52 12/09/23 20:58 Labs: Laboratory Results - last 24 hr 12/09/23 12/09/23 12/10/23 20:58 23:54 06:52 WBC 19.08 H 14.58 H RBC 4.13 L 4.00 L Hgb 13.3 L 12.5 L Hct 38.0 L 37.1 L MCV 92 93 MCH 32.2 31.3 MCHC 35.0 33.7 RDW 16.0 H 15.9 H Plt Count 249 235 MPV 8.9 9.2 Immature Gran % See Differential Neutrophils % 82.0 Band Neutrophils % 4 Lymphocytes % 2.0 Atypical Lymphs % 3 Monocytes % 6.0 Eosinophils % 0.0 Basophils % 0.0 Metamyelocytes % 3 Nucleated RBC % 0.0 Absolute Neutrophils 16.41 H Absolute Lymphocytes 0.95 L Absolute Monocytes 1.14 H Absolute Eosinophils 0.00 Absolute Basophils 0.00 RBC Morphology Normal ESR 51 H VBG Lactate 0.8 Sodium 133 L Potassium 4.1 Chloride 101 Carbon Dioxide 23.7 Anion Gap 8.3 BUN 26 H Creatinine 1.3 Est GFR (CKD-EPI 2020) 56.93 Glucose 130 H Calcium 9.0 Magnesium 1.9 Total Bilirubin 0.88 AST 42 H ALT 99 H Alkaline Phosphatase 124 H C-Reactive Protein 13.56 H Total Protein 6.6 Albumin 2.6 L Procalcitonin 0.1 Urine Color Yellow Urine Clarity Clear Urine pH 5.5 Ur Specific [place] 1.020 Urine Protein 30 H Urine Ketones Negative Urine Blood Trace-lysed H Urine Nitrite Negative Urine Bilirubin Negative Urine Urobilinogen 0.2 Ur Leukocyte Esterase Negative Urine RBC 0-2 Urine WBC 0-2 Ur Epithelial Cells Rare Urine Crystals Negative Urine Bacteria Rare Urine Casts 0-2 Hyaline Urine Mucus Trace Urine Other Rare Transitional Ur Culture Indicated? No Urine Glucose Negative COVID-19 Source Nasopharynx SARS-CoV-2 (PCR) Negative Influenza Type A (PCR) Negative Influenza Type B (PCR) Negative RSV (PCR) Negative Imaging CT scan - chest: image reviewed Additional studies: CT Chest Pulmonary parenchyma: Diffuse hazy ground-glass opacities involving the left lung. No consolidation. No dominant measurable mass. Scattered calcified granulomas in the right middle and lower lobes. Tracheobronchial tree: No bronchiectasis or mucous plugging. Mediastinum and Ren[place]: Confluent mass versus adenopathy in the right paratracheal and subcarinal region with heterogeneous appearance and calcifications. Approximate measurements 4.2 x 3.9 x 7.3 cm. Right paratracheal adenopathy/mass measures 1.6 x 3 0 cm. Pleura: Trace right pleural effusion. No pneumothorax. Heart: The heart is not dilated. No coronary artery calcifications are seen. Aorta: Thoracic aorta non-dilated. No significant atherosclerotic changes. Pulmonary arteries: No gross evidence of emboli. IMPRESSION: Diffuse ground-glass infiltrate involving the left lung. No focal consolidation. Mass versus adenopathy the in the right subcarinal and right paratracheal regions. Unexpected findings
--- NOTE | 2023-12-10 10:20 | PDOC.CMIN ---
Date of service: 12/10/23 Time of Service: 10:21 Care Management Initial Assmt Initial Assessment Reason for Hospitalization: ADY infiltrate, diffuse large B-cell lymphoma Functional Status/Living Situation Patient Presentation: Abdirahman was lying in bed, was standing at his bedside when CM met with him. He is awake and engages in conversation and coughs frequently. The couple have a son and daughter that live out of the area. Abdirahman has 5 [id number] who are local and supportive. Town of Residence: [place] Resides with: Spouse (Sara) Significant Other/Family: Local Employment Status: Retired Instrumental Activities of Daily Living (ADLs): Independent Activities/Hobbies/SocialSupport: Attends a taoist group Medications Medication Management: No Issues/Barriers identified Physical Functioning/Mobility Assistive Device: None Advance Directives Advance Directives: Do you have an Advance Directive: N 09/24/22 10:45 AD On File at [facility]: N 09/24/22 10:45 Date Asked 12/03/23 12/03/23 08:50 AD Date Reviewed COLST On File at [facility] COLST Date Scanned Code Status Resuscitation Status Full Code Portal Pt does not currently have a portal and education provided: Yes Insurance Coverage/Financial Issues Insurance: BC/BS of [place] Financial Issues: None identified Care Team Visit Care Team Role Provider Type Unknown Unknown Primary Care Provider STAFF PHYSICIAN Genoveva Pierre MD Other Providers [facility] STAFF PHYSICIAN Tiffanie Barnes Emergency Provider NURSE PRACTITIONER Laci Mai MD Admit Provider [facility] STAFF PHYSICIAN Attending Provider Discharge Potential Discharge Needs: PCP F/U Appt (Patient has an appointment to establish care with Dr. Kevin Ellison on 01/19/24. Will need a sooner appt for a hospital follow up or T-doc Follow up. ) and Surgical F/U Appt Anticipated Barriers to Discharge: None Identified Patient/Family Education Needs: Review discharge instructions, discuss Ask Me Three Transportation: Private vehicle Plan: Abdirahman is planning on going to the OR this afternoon for a Bronchoscopy. Anticipate, he will discharge home and follow up with community providers and his discharge plan of care as recommended. He will likely need to follow up with Pulmonology, Oncology and primary care (t-doc vs Dr. Kevin Ellison). CM is following. PFSH All Active Problems (Updated 12/10/23 @ 14:48 by Genoveva Pierre MD) Sepsis (Acute) Opacity of lung on imaging study (Acute) Fever (Acute) Pneumonia (Acute) Large B-cell lymphoma (Acute) Wears hearing aid in both ears (Acute) Sensorineural hearing loss, bilateral (Acute) Sensory hearing loss, bilateral (Acute) Social History Smoking/Tobacco Use Status: Never Smoking risk assessment performed?: Yes Substance use type: does not use SDOH(Care Management) Screening Will the Patient Participate in the Screening?: Unable to obtain
[2023-12-10] MEDS: Apixaban 5 MG TAB PO ×2 (10:44→21:04)
--- NOTE | 2023-12-10 10:44 | NUR.NOTE ---
Nursing Note: Pt made aware he is now NPO for bronchoscopy later in the afternoon
[2023-12-10] MEDS: VANCOMYCIN/WATER (PEG) 1 GM/200 ML BAG IVPB (12:05)
--- NOTE | 2023-12-10 13:22 | ANES.PREOP_ITS ---
General Info Date of Service Date Performed: 12/10/23 Height: 5 ft 4 in Weight: 63.04 kg Body Mass Index (BMI): 23.8 Surgical Procedure: Operation Date: 12/10/23 16:40 Proposed Procedure Side Surgeon pauline Pierre MD Meds Allergies and Home Medications Allergies Allergy/AdvReac Type Severity Reaction Status Date / Time No Known Allergies Allergy Verified 12/09/23 22:49 Home Medication ?Medication ?Instructions ?Recorded acyclovir 400 mg tablet 400 mg PO BID 12/09/23 apixaban 5 mg tablet (Eliquis) 10 mg PO BID 12/09/23 finasteride 5 mg tablet 5 mg PO DAILY 12/09/23 loratadine 10 mg tablet 10 mg PO DAILY 12/09/23 pantoprazole 40 mg tablet,delayed 40 mg PO DAILY 12/09/23 release Current Visit Medications: Current Medications Generic Name Dose Route Start Last Admin Trade Name Freq PRN Reason Stop Dose Admin Acetaminophen 650 mg 12/10/23 00:35 12/10/23 02:58 Acetaminophen 325 Mg Tab PO 650 mg Q4H PRN PRN Administration Acyclovir 400 mg 12/10/23 08:30 12/10/23 08:45 Acyclovir 400 Mg Tab PO 400 mg BID CARLOS MANUEL Administration Apixaban 5 mg 12/10/23 10:00 12/10/23 10:44 Apixaban 5 Mg Tab PO 5 mg BID CARLOS MANUEL Administration Finasteride 5 mg 12/10/23 08:30 12/10/23 08:45 Finasteride 5 Mg Tab PO 5 mg DAILY CARLOS MANUEL Administration Sodium Chloride 1,000 mls @ 125 mls/hr 12/09/23 23:45 12/10/23 05:17 Saline 1000ml Bag IV Infused INFUSION CARLOS MANUEL Infusion Azithromycin 250 mg/ Sodium 250 mls @ 250 mls/hr 12/11/23 00:00 Chloride IVPB Q24H CARLOS MANUEL Cefepime HCl 1 gm/ Sodium 50 mls @ 100 mls/hr 12/10/23 08:00 12/10/23 09:15 Chloride IVPB Infused Q8H CARLOS MANUEL Infusion Vancomycin/PEG/[place]/Lysine/Water 1 gm in 200 mls @ 133.333 mls/hr 12/10/23 12:00 12/10/23 12:05 Vancocin Injection IVPB 133.333 mls/hr Q24H CARLOS MANUEL Administration Sodium Chloride 500 mls @ 0 mls/hr 12/10/23 10:00 Saline 500ml Bag IV DIRECTED PRN As Directed IV Miscellaneous Supplies 1 each 12/10/23 10:00 Iv Access IV DIRECTED CARLOS MANUEL Loratadine 10 mg 12/10/23 08:30 12/10/23 08:45 Loratidine 10 Mg Tab PO 10 mg DAILY CARLOS MANUEL Administration Melatonin 6 mg 12/10/23 09:53 Melatonin 3 Mg Tab PO HS PRN PRN Insomnia Pantoprazole Sodium 40 mg 12/11/23 07:30 Pantoprazole 40 Mg Tabcr PO DAILY@0730 CARLOS MANUEL Sodium Chloride 0 ml 12/10/23 10:00 Normal Saline Flush 10 Ml Syr IVP PRN PRN PFSH Active Problems Active Problems: Problem Status Onset Code Fever Acute R50.9 Pneumonia Acute J18.9 Large B-cell lymphoma Acute C85.10 Wears hearing aid in both ears Acute Z97.4 Sensorineural hearing loss, bilateral Acute H90.3 Sensory hearing loss, bilateral Acute H90.3 Tobacco Smoking/Tobacco Use Status: Never Substance Use Substance use type: does not use Vital Signs and Lab Results Vital Signs Most Recent Vital Signs in EMR: Most Recent Vital Signs Temp Pulse Resp BP Pulse Ox 37.1 C 101 H 17 110/52 L 93 12/10/23 07:23 12/10/23 07:23 12/10/23 07:23 12/10/23 07:23 12/10/23 07:23 Lab Results 12/10/23 06:52 12/09/23 20:58 Blood Type / Crossmatch: 2 Antibody Screen NEGATIVE 12/03/23 Complete Blood Count: 2 White Blood Count 14.58 10^3/uL (4.4-10.8) H 12/10/23 06:52 Red Blood Count 4.00 10^6/uL (4.36-5.78) L 12/10/23 06:52 Hemoglobin 12.5 g/dL (13.5-17.5) L 12/10/23 06:52 Hematocrit 37.1 % (40.0-50.0) L 12/10/23 06:52 Platelet Count 235 10^3/uL (130-400) 12/10/23 06:52 Venous Blood Lactate 0.8 mmol/L (0.6-1.4) 12/09/23 20:58 Complete Metabolic Panel: 2 Sodium 133 mmol/L (136-145) L 12/09/23 20:58 Potassium 4.1 mmol/L (3.5-5.1) 12/09/23 20:58 Chloride 101 mmol/L (98-107) 12/09/23 20:58 Carbon Dioxide 23.7 mmol/L (21.0-32.0) 12/09/23 20:58 BUN 26 mg/dL (7-18) H 12/09/23 20:58 Creatinine 1.3 mg/dL (0.70-1.30) 12/09/23 20:58 Est GFR (CKD-EPI 2020) 56.93 (mL/min/1.73m2) 12/09/23 20:58 Magnesium 1.9 mg/dL (1.8-2.4) 12/09/23 20:58 Calcium 9.0 mg/dL (8.5-10.1) 12/09/23 20:58 Albumin 2.6 g/dL (3.4-5.0) L 12/09/23 20:58 Glucose 130 mg/dL (74-106) H 12/09/23 20:58 C-Reactive Protein 13.56 mg/dL (<or=0.5) H 12/09/23 20:58 Liver Function Panel: 2 Alanine Aminotransferase (ALT/SGPT) 99 U/L (16-63) H 12/09/23 2 0:58 Aspartate Amino Transf (AST/SGOT) 42 U/L (15-37) H 12/09/23 20: 58 Coagulation Panel: 2 No Data to Display Cardiac Panel: 2 No Data to Display Arterial Blood Gas: 2 No Data to Display Venous Blood Gas: 2 No Data to Display Pancreas Panel: 2 No Data to Display Thyroid Panel: 2 No Data to Display Infectious Disease: 2 Coronavirus (COVID-19)(PCR) Negative (Negative) 12/09/23 23:54 Coronavirus 2019 Source Nasopharynx 12/09/23 23:54 Influenza Virus Type A (PCR) Negative (Negative) 12/09/23 23:5 4 Influenza Virus Type B (PCR) Negative (Negative) 12/09/23 23:5 4 Respiratory Syncytial Virus (PCR) Negative (Negative) 12/09/23 23:54 Blood Cultures: 2 No Data to Display Toxicology Panel: 2 No Data to Display Anesthesia Assessment and Plan Anesthesia History Personal History: No History of Anesthesia Complications Family History: No Family History of Anesthesia Complications Exercise Tolerance Exercise Tolerance: Metabolic Equivalents>4 Pertinent Negatives Pertinent Negatives: No Symptoms of GERD (On meds) Cardiac & Pulmonary Exam Cardiac Exam: Normal S1/S2 Heart Sounds Pulmonary Exam: Active Dry Cough Implantable Cardiac Device Does patient have a Pacemaker or an ICD?: No Airway Exam Known Difficult Airway: No Mallampati Class: 2 Mouth Opening: Normal (> 3cm) Thyromental Distance: Greater than 3 cm Neck Range of Motion: Full ROM Neck Circumference: Normal Teeth Condition: Normal Dentition ASA Classification ASA Score: ASA 3 Emergency Case?: No NPO Status NPO Status: NPO Clears >2 hours, Solids >8 hours Anesthesia Plan Resuscitation Status: Full Code Anesthesia Technique: General Anesthesia Airway Planned: Endotracheal Tube Monitors Used: Standard Monitors
--- NOTE | 2023-12-10 13:42 | PHACLINREV_ITS ---
Pharmacy Admission Review Admission Clinical Review Admission Pharmacy Review: Fever (Acute) Pneumonia (Acute) Large B-cell lymphoma (Acute) No Known Allergies Allergy (Verified 12/09/23 22:49) Resuscitation Status Full Code Height 5 ft 4 in Weight 63.04 kg Pharmacy Admission Review Renal Dosing Renal Dosing: BUN 26 mg/dL (7-18) H 12/09/23 20:58 Creatinine 1.3 mg/dL (0.70-1.30) 12/09/23 20:58 Medications needing adjustments: Reviewed (CrCl 43.1) List of meds needing interventions: Current medications are okay Anticoagulation Anticoagulation: Hgb 12.5 g/dL (13.5-17.5) L 12/10/23 06:52 Hct 37.1 % (40.0-50.0) L 12/10/23 06:52 Plt Count 235 10^3/uL (130-400) 12/10/23 06:52 Creatinine 1.3 mg/dL (0.70-1.30) 12/09/23 20:58 DVT Prophylaxis: Intervened (order was initially put in as 10mg BID, based on last draft roller picker (11/24/23) patient had completed the 7 days, reached out to provider who agreed and asked that the order be changed to 5mg BID) Medications: Apixaban (5mg PO BID) Relevant Labs Relevant Labs: ESR 51 mm/hr (0-20) H 12/09/23 20:58 Sodium 133 mmol/L (136-145) L 12/09/23 20:58 Potassium 4.1 mmol/L (3.5-5.1) 12/09/23 20:58 Chloride 101 mmol/L (98-107) 12/09/23 20:58 Magnesium 1.9 mg/dL (1.8-2.4) 12/09/23 20:58 C-Reactive Protein 13.56 mg/dL (<or=0.5) H 12/09/23 20:58 Electrolytes, C-Reactive P, ESR: Reviewed (No new labs for today) Cardiac Review BP, HR, EF%: Reviewed (BP 110/52, HR 101) QTc Review QTc: Reviewed (No EKG on file) IV to PO Switch IV Medications: Reviewed (azithromycin, cefepime and vancomycin) Home Meds Home Med List reviewed: Intervened Relevent Home Meds Not ordered & why?: Reached out to nursing to see if patient takes Advair and Montelukast at home - filled recently but not on home med list. Waiting to hear back Current Meds Current Medication Order Review: Intervened Comments: Added IV admission order set Added 2nd PRN to melatonin order per pharmacy protocol Changed timing of pantoprazole from 0830 to 0730 per pharmacy protocol Pharmacy Antibiotic Review Relevant Labs: Relevant Labs 12/09/23 20:58 C-Reactive Protein 13.56 H Procalcitonin 0.1 WBC 14.58 10^3/uL (4.4-10.8) H 12/10/23 06:52 Procalcitonin 0.1 ng/mL 12/09/23 20:58 Temperature 37.1 C Pharmacy Antibiotic Activity: C/S review and Reviewed, no change Comments: Patient is on azithromycin, vancomycin and cefepime, day 1, for pneumonia. Vancomycin dosing set to 1000mg q12h with predicted AUC of 487 and trough of 14.9. Level pending for tomorrow morning at 0600. Will adjust dose as needed based on level. WBC decreased from 19.08. Blood/pharynx cultures pending.
--- NOTE | 2023-12-10 14:56 | W.PM.PROGNOT ---
Date of Service Date of service: 12/10/23 Time of Service: 14:56 Assessment and Plan Assessment and plan (1) Pneumonia: Status: Acute Assessment and plan: Atypical pneumonia with groundglass changes differential diagnosis includes progression of his lymphoma versus primary lung cancer versus atypical pneumonia such as mycoplasma or Legionella versus fungal pneumonia versus PJP. I have ordered PCR for PJP as well as a fungal tell study of also ordered urine for histoplasmosis antigen and Dr. Pierre has ordered BAL for aerobic and anaerobic bacterial cultures as well as fungal studies. Continue cefepime vancomycin and azithromycin while we await culture results. I have added Bactrim in the interim until we rule out PJP. Thank he is high risk for PJP given his recent high-dose steroid treatment for his lymphoma. If there is no evidence for pneumocystis I will discontinue the Bactrim. I will await starting an antifungal until we see if either his Fungitell is positive or his BAL shows fungal elements on staining. Qualifiers: Pneumonia type: due to unspecified organism Laterality: left Lung location: unspecified part of lung Qualified Code(s): J18.9 - Pneumonia, unspecified organism (2) Large B-cell lymphoma: Status: Acute (3) Sepsis: Status: Acute Assessment and plan: Technically meets criteria for sepsis including leukocytosis evidence for infection tachypnea however he is not showing any signs of septic shock or severe sepsis as he has no encephalopathy and no evidence for endorgan injury. Qualifiers: Sepsis type: sepsis due to unspecified organism Sepsis acute organ dysfunction status: unspecified Qualified Code(s): A41.9 - Sepsis, unspecified organism (4) Opacity of lung on imaging study: Status: Acute Assessment and plan: As above (5) History of pulmonary embolism: Status: Acute Assessment and plan: Apixaban held for his procedure resume his apixaban tonight Subjective Subjective Interval history since last seen: See admission H&P and ER note for details of the patient's presenting symptoms and history. In summary this gentleman has large B-cell lymphoma for which she has had recent treatment with CHOP therapy within the past month. He is followed by Dr. Jil Jones from [facility], at [facility]. He is presented with acute dry cough and fever and chills. CT scan showed atypical left-sided pneumonia with diffuse groundglass abnormalities throughout his left lung. However he is not hypoxemic. He has mediastinal adenopathy and hilar adenopathy bilaterally. He was admitted for treatment of atypical pneumonia and started on Azithromycin and cefepime and vancomycin. I discussed his case with Dr. Genoveva Pierre, reconciliation clerk who reviewed the case and plans on doing bronchoscopy this afternoon. I have ordered mycoplasma studies and urine strep antigen. The refuse collector supervisor last night did order urine Legionella study. I have also ordered a fungal tail study. Once she has the bronchoscopy and BAL further cultures will be sent for atypical viral respiratory pathogens as well as PCR for PJP as well as cultures for aerobic and anaerobic bacteria as well as fungal cultures. He has not been started on antifungal yet however I would plan on starting him on Bactrim. Exam Narrative Exam Narrative: Alert elderly male who speaks good Nigerian appears to be in no acute respiratory distress although he has a dry nonproductive cough. His is present during my interview with him and answered some of the questions for him but for the most part he answers all the questions on his own without any difficulty. He denies any hemoptysis. Lungs reveal diffuse fine cellophane rales bilaterally no rhonchi or wheezing Heart is regular rate and rhythm Examination of the neck supraclavicular epitrochlear axillary and inguinal lymph nodes reveals no remarkable adenopathy. Objective Last Vital Signs Temp 37.1 C 12/10/23 07:23 Pulse 101 H 12/10/23 07:23 Resp 17 12/10/23 07:23 BP 110/52 L 12/10/23 07:23 Pulse Ox 93 12/10/23 07:23 Laboratory Results - last 24 hr 12/09/23 12/09/23 12/10/23 20:58 23:54 06:52 WBC 19.08 H 14.58 H RBC 4.13 L 4.00 L Hgb 13.3 L 12.5 L Hct 38.0 L 37.1 L MCV 92 93 MCH 32.2 31.3 MCHC 35.0 33.7 RDW 16.0 H 15.9 H Plt Count 249 235 MPV 8.9 9.2 Immature Gran % See Differential Neutrophils % 82.0 Band Neutrophils % 4 Lymphocytes % 2.0 Atypical Lymphs % 3 Monocytes % 6.0 Eosinophils % 0.0 Basophils % 0.0 Metamyelocytes % 3 Nucleated RBC % 0.0 Absolute Neutrophils 16.41 H Absolute Lymphocytes 0.95 L Absolute Monocytes 1.14 H Absolute Eosinophils 0.00 Absolute Basophils 0.00 RBC Morphology Normal ESR 51 H VBG Lactate 0.8 Sodium 133 L Potassium 4.1 Chloride 101 Carbon Dioxide 23.7 Anion Gap 8.3 BUN 26 H Creatinine 1.3 Est GFR (CKD-EPI 2020) 56.93 Glucose 130 H Calcium 9.0 Magnesium 1.9 Total Bilirubin 0.88 AST 42 H ALT 99 H Alkaline Phosphatase 124 H C-Reactive Protein 13.56 H Total Protein 6.6 Albumin 2.6 L Procalcitonin 0.1 Urine Color Yellow Urine Clarity Clear Urine pH 5.5 Ur Specific [place] 1.020 Urine Protein 30 H Urine Ketones Negative Urine Blood Trace-lysed H Urine Nitrite Negative Urine Bilirubin Negative Urine Urobilinogen 0.2 Ur Leukocyte Esterase Negative Urine RBC 0-2 Urine WBC 0-2 Ur Epithelial Cells Rare Urine Crystals Negative Urine Bacteria Rare Urine Casts 0-2 Hyaline Urine Mucus Trace Urine Other Rare Transitional Ur Culture Indicated? No Urine Glucose Negative Adenovirus DNA COVID-19 Source Nasopharynx SARS-CoV-2 (PCR) Negative Human Metapneumovir RNA Influenza Type A (PCR) Negative Influenza Type B (PCR) Negative Parainfluenza 1 (PCR) Parainfluenza 2 (PCR) Parainfluenza 3 (PCR) Parainfluenza 4 (PCR) RSV (PCR) Negative Resp Viral Spec Desc Rhinovirus (PCR) 12/10/23 11:01 WBC RBC Hgb Hct MCV MCH MCHC RDW Plt Count MPV Immature Gran % Neutrophils % Band Neutrophils % Lymphocytes % Atypical Lymphs % Monocytes % Eosinophils % Basophils % Metamyelocytes % Nucleated RBC % Absolute Neutrophils Absolute Lymphocytes Absolute Monocytes Absolute Eosinophils Absolute Basophils RBC Morphology ESR VBG Lactate Sodium Potassium Chloride Carbon Dioxide Anion Gap BUN Creatinine Est GFR (CKD-EPI 2020) Glucose Calcium Magnesium Total Bilirubin AST ALT Alkaline Phosphatase C-Reactive Protein Total Protein Albumin Procalcitonin Urine Color Urine Clarity Urine pH Ur Specific [place] Urine Protein Urine Ketones Urine Blood Urine Nitrite Urine Bilirubin Urine Urobilinogen Ur Leukocyte Esterase Urine RBC Urine WBC Ur Epithelial Cells Urine Crystals Urine Bacteria Urine Casts Urine Mucus Urine Other Ur Culture Indicated? Urine Glucose Adenovirus DNA Cancelled COVID-19 Source SARS-CoV-2 (PCR) Human Metapneumovir RNA Cancelled Influenza Type A (PCR) Influenza Type B (PCR) Parainfluenza 1 (PCR) Cancelled Parainfluenza 2 (PCR) Cancelled Parainfluenza 3 (PCR) Cancelled Parainfluenza 4 (PCR) Cancelled RSV (PCR) Resp Viral Spec Desc Cancelled Rhinovirus (PCR) Cancelled Time Spent with Patient Time Spent with Patient: 35-49 minutes Time was spent: preparing to see the patient(eg.review tests), obtaining and/or reviewing separately otained hiistory, ordering medications,tests, procedures, referring, communicating with other health manager primary care, indepentently interpreting results, counseling the patient and care coordination
--- NOTE | 2023-12-10 16:20 | NUR.NOTE ---
Nursing Note: Took pt to OR for bronchoscopy with ABX and NS hanging. Left the florr at 1615
[2023-12-10] MEDS: Lactated Ringers 1,000 ML 75 ML IV (16:32)
--- NOTE | 2023-12-10 16:40 | PAPNONF_PTH ---
PATIENT: Byron López LOC: ICU U#:[id number] AGE/SX: 78/M ROOM: ICU.221 RE12/10/[address]: Laci Mai : 1945 BED: A DIS: 12/13/2023 SPEC #: [id number] RECD: 12/10/23 18:31 STATUS: SOUBenoit REQ #: [id number] WARREN: 12/10/23 16:[address]: Laci Mai DEPT: [facility] Cytology RECD BY: Chen Robles ENTERED: 12/10/23 18:35 SP TYPE: LISA PETER DR: Genoveva Pierre Unknown,Unknown Tissues: 1 - BODY FLUID CYTO(NOT S/U/N/EM)[facility] Procedures: BODY FLUID CYTO(NOT SPU/UR/NIP/ENDOM)[facility] SILVER STAIN Comments: [id number] (TV=40 cm, SUBMITTED IN SALINE) (REFRIGERATED)
--- NOTE | 2023-12-10 17:00 | W.PM.OP ---
Date of service: 12/10/23 Time of Service: 17:00 Operative Note Operative Note DATE OF PROCEDURE: 12/10/23 PRE-OP DIAGNOSIS: Large B cell lymphoma, Patchy Pulmonary infiltrates L and sepsis PROCEDURE: Bronchoscopy w/ BAL ADY SURGEON: Genoveva Pierre ANESTHESIA TYPE: General LMA/ETT Refer to Anesthesia Record ESTIMATED BLOOD LOSS: 0 Findings: R main stem eroding mass but no endobronchial obstuection as previosuly mentioned. Inflammed mucousa throughout No endobronchial lesions on Left Procedure Description: After consent was obtained, patient was brought to OR and after sedation given ETT 8.0 placed. Time out performed. Bronchoscopy was then introduced through ETT and trachea, right main and left main stem was inspected. At the right main stem take off an anterior eroding necrotic mass was observed at around 12 o'clock but main stem was patent and subsegments also patent free of secretions. At the main stem no masses seen. Only diffuse inflammation. 150ml saline was introduced into the ADY and approximately 50ml returned. Specimen will be sent for: -culture -AFB -fungal culture -Virus -cell count -cytology. Patient tolerated procedure well and had no immediate complications.
[2023-12-10] MEDS: fentaNYL 100 MCG/2 ML VIAL IVP (17:27)
[2023-12-10] MEDS: fentaNYL 100 MCG/2 ML VIAL (17:29)
--- NOTE | 2023-12-10 17:48 | ANES.POST_ITS ---
Postoperative Evaluation Date, Time and Location Date Performed: 12/10/23 Time Performed: 17:48 Patient Location: PACU Vital Signs Most Recent Imported Vital Signs: Most Recent Vital Signs Temp Pulse Resp BP Pulse Ox 37.7 C H 108 H 14 127/59 L 94 12/10/23 17:31 12/10/23 17:36 12/10/23 17:36 12/10/23 17:36 12/10/23 17:36 Pain Score Most Recent Pain Score: Most Recent Pain Score Pain Level 0 12/10/23 16:00 Assessment Mental Status: Awake (Alert & Oriented to Patient Baseline) Airway and Respiratory Function: Patent airway with normal (patient baseline) respiratory exam Cardiovascular Function: Hemodynamically Stable Hydration Status: Adequately Hydrated Nausea & Vomiting: No Nausea or Vomiting Pain: Pt. Denies Any Pain Peripheral Nerve Block: Patient did not receive a nerve block Postoperative Comments:: Aggressive post bronch cough. Treated with Fentanyl. Latesha Hurtado [employer] SERVICE SALES REPRESENTATIVE
--- NOTE | 2023-12-10 17:50 | NUR.NOTE ---
Nursing Note: gave report to ICU.
[2023-12-10] MEDS: Benzonatate 200 MG CAP PO (21:05)
[2023-12-10 22:30] LABS: Legionella Ag Detection Urine Negative (Negative)
[2023-12-10] MEDS: Melatonin 3 MG TAB 6 MG PO (22:45)
[2023-12-10 23:57] LABS: Bilirubin Negative (Negative); Blood Trace-intact (Negative); Clarity Clear (Clear); Glucose 250 mg/dL (Negative); Ketones Negative (Negative); Leukocyte Esterase Negative (Negative); Nitrite Negative (Negative)
[2023-12-11] VITALS (15 sets, daily range): BP systolic 87–119; BP diastolic 54–63; PULSE 87–101; RESP 18–32; TEMP 36.5–37.5; O2SAT 88–96
[2023-12-11 00:05] LABS: Bacteria Rare HPF (Negative); C & S Indicated? No; Casts Negative LPF (Negative); Crystals Negative HPF (Negative); Epithelial Cells Rare HPF (Negative); Mucus Negative (Negative); RBC 0-2 HPF (0-2); WBC Negative HPF (0-5)
[2023-12-11 00:52] LABS: Adenovirus DNA Result Negative (Negative); Metapneumovirus RNA Result Negative (Negative); Parainfluenza Type1 RNA Result Negative (Negative); Parainfluenza Type2 RNA Result Negative (Negative); Parainfluenza Type3 RNA Result Negative (Negative); Parainfluenza Type4 RNA Result Negative (Negative); Rhinovirus RNA Result Negative (Negative)
[2023-12-11] MEDS: CEFEPIME 1 GM in Normal Saline 50 ML IVPB ×4 (00:55→23:30)
[2023-12-11 06:46] LABS: Abs Immature Grans 0.41 10^3/uL (0.0-0.06); Absolute Lymphocyte Count 0.84 10^3/uL (1.2-3.4); Absolute Monocyte Count 0.85 10^3/uL (0.1-0.8); Absolute Neutrophil Count 13.66 10^3/uL (1.2-6.7); Basophils % 0.4 %; HGB 11.4 g/dL (13.5-17.5); Immature Grans % 2.6 %; Lymphocytes % 5.3 %; MCHC 34.5 % (32.0-36.0); MCV 93 fL (80-95); MPV 9.6 fL (8.0-11.0); Monocytes % 5.4 %; Neutrophils % 86.3 %; Platelet Count 285 10^3/uL (130-400); RBC 3.56 10^6/uL (4.36-5.78); RDW 15.8 % (11.8-14.1); RDW-SD 52.9 fL; WBC 15.83 10^3/uL (4.4-10.8)
[2023-12-11 06:51] LABS: Absolute Basophil Count 0.06 10^3/uL (0.0-0.2)
[2023-12-11 07:23] LABS: ALT 97 U/L (16-63); AST 45 U/L (15-37); Alkaline Phosphatase 106 U/L (46-116); Anion Gap 7.2 mmol/L (3-11); BUN 14 mg/dL (7-18); Bilirubin, Total 0.55 mg/dL (0.2-1.0); CO2 24.8 mmol/L (21.0-32.0); CREATININE 0.9 mg/dL (0.70-1.30); Calcium 7.8 mg/dL (8.5-10.1); Chloride 103 mmol/L (98-107); Estimated GFR 88.51 (mL/min/1.73m2); Glucose 204 mg/dL (74-106); Potassium 3.9 mmol/L (3.5-5.1); Sodium 135 mmol/L (136-145); Total Protein 5.7 g/dL (6.4-8.2)
[2023-12-11 07:27] LABS: Vancomycin, Random 3.8 ug/mL
[2023-12-11] MEDS: Loratidine 10 MG TAB PO (08:42)
[2023-12-11] MEDS: Finasteride 5 MG TAB PO (08:42)
[2023-12-11] MEDS: Apixaban 5 MG TAB PO ×2 (08:42→19:53)
[2023-12-11] MEDS: Benzonatate 200 MG CAP PO ×3 (08:42→19:53)
[2023-12-11] MEDS: Acyclovir 400 MG TAB PO ×2 (08:42→19:53)
[2023-12-11] MEDS: Pantoprazole 40 MG TABCR PO (08:42)
--- NOTE | 2023-12-11 09:04 | CMPROGNOTE_ITS ---
Date of service: 12/11/23 Time of Service: 09:04 Care Management Progress Note Progress Note Text Progress Note Text: Abdirahman is being closely monitored and treated in the ICU and is medically ready to transfer to [facility] care. He is on IV ABX and is #1 day s/p bronchoscopy with studies pending. Pt reports that he is feeling much better, his cough had subsided but has returned this morning. Pt was recently diagnosed with large B Cell lymphoma and is seeing Dr. Willams at [facility]. Discharge Potential Discharge Needs: PCP F/U Appt and Surgical F/U Appt Anticipated Barriers to Discharge: Medical Status Patient/Family Education Needs: Review discharge instructions, discuss Ask Me Three Transportation: Private vehicle Plan: Anticipate, he will discharge home and follow up with community providers and his discharge plan of care as recommended. He will likely need to follow up with Pulmonology, Oncology and primary care (t-doc vs Dr. Kevin Ellison). CM is following. SDOH(Care Management) Screening Will the Patient Participate in the Screening?: Unable to obtain
[2023-12-11] MEDS: VANCOMYCIN/WATER (PEG) 1.25 GM/250 ML BAG IVPB ×2 (10:31→21:50)
--- NOTE | 2023-12-11 10:49 | PGE_ITS ---
Date of Service Date of service: 12/11/23 Time of Service: 10:49 Assessment and Plan Assessment and plan (1) Pneumonia: Status: Acute Assessment and plan: Patient remains on broad-spectrum antibiotics including cefepime, vancomycin, doxycycline as well as Bactrim. Will de-escalate on his antibiotics once we get some of his studies back including his atypical studies. Continue to encourage use of I-S and acapella and early mobilization. Patient no longer needs ICU monitoring as he recovered quite well from his bronchoscopy. Will downgrade to MedSurg status although there are no beds on the floor at present I told him once we have his BAL studies back and have an idea of what antibiotics we can put him on we can transition to oral antibiotics and discharge him home to follow-up as outpatient with his oncologist and we will refer him to a link trainer. Qualifiers: Pneumonia type: due to unspecified organism Laterality: left Lung location: unspecified part of lung Qualified Code(s): J18.9 - Pneumonia, unspecified organism (2) Large B-cell lymphoma: Status: Acute (3) Sepsis: Status: Acute Assessment and plan: Technically meets criteria for sepsis including leukocytosis evidence for infection tachypnea however he is not showing any signs of septic shock or severe sepsis as he has no encephalopathy and no evidence for endorgan injury. Qualifiers: Sepsis type: sepsis due to unspecified organism Sepsis acute organ dysfunction status: unspecified Qualified Code(s): A41.9 - Sepsis, unspecified organism (4) Opacity of lung on imaging study: Status: Acute Assessment and plan: As above (5) History of pulmonary embolism: Status: Acute Assessment and plan: Apixaban held for his procedure resume his apixaban tonight Subjective Subjective Interval history since last seen: Patient states he feels better today is less dyspneic cough is improved. He has been weaned down to room air with SpO2 92%. Denies any chest discomfort. I told him and his we are awaiting results on his BAL cultures and studies. Exam Narrative Exam Narrative: Abdirahman is sitting up in bed alert and orient x 3 no cough when I walked in the room however after making multiple efforts at deep breathing for me did have some nonproductive cough Lungs showed marked improved aeration in both lungs he still has some fine dry rales on the left side no rhonchi and no wheezing Heart is regular rate and rhythm Extremities without peripheral edema Objective Last Vital Signs Temp 36.7 C 12/11/23 00:00 Pulse 97 H 12/11/23 04:02 Resp 25 H 12/11/23 04:02 BP 103/59 L 12/11/23 04:02 Pulse Ox 94 12/11/23 08:21 Laboratory Results - last 24 hr 12/10/23 12/10/23 12/10/23 11:01 11:02 11:20 WBC RBC Hgb Hct MCV MCH MCHC RDW Plt Count MPV Immature Gran % Neutrophils % Lymphocytes % Monocytes % Eosinophils % Basophils % Nucleated RBC % Absolute Neutrophils Absolute Lymphocytes Absolute Monocytes Absolute Eosinophils Absolute Basophils Sodium Potassium Chloride Carbon Dioxide Anion Gap BUN Creatinine Est GFR (CKD-EPI 2020) Glucose Calcium Total Bilirubin AST ALT Alkaline Phosphatase Total Protein Albumin Urine Color Yellow Urine Clarity Clear Urine pH 6.0 Ur Specific [place] 1.020 Urine Protein Trace Urine Ketones Negative Urine Blood Trace-intact H Urine Nitrite Negative Urine Bilirubin Negative Urine Urobilinogen 1.0 H Ur Leukocyte Esterase Negative Urine RBC 0-2 Urine WBC Negative Ur Epithelial Cells Rare Urine Crystals Negative Urine Bacteria Rare Urine Casts Negative Urine Mucus Negative Ur Culture Indicated? No Urine Glucose 250 H Random Vancomycin Adenovirus DNA Cancelled Negative Human Metapneumovir RNA Cancelled Negative Urine Legionella Ag Negative Parainfluenza 1 (PCR) Cancelled Negative Parainfluenza 2 (PCR) Cancelled Negative Parainfluenza 3 (PCR) Cancelled Negative Parainfluenza 4 (PCR) Cancelled Negative Resp Viral Spec Desc Cancelled Not Applicable Rhinovirus (PCR) Cancelled Negative 12/11/23 05:50 WBC 15.83 H RBC 3.56 L Hgb 11.4 L Hct 33.0 L MCV 93 MCH 32.0 MCHC 34.5 RDW 15.8 H Plt Count 285 MPV 9.6 Immature Gran % 2.6 Neutrophils % 86.3 Lymphocytes % 5.3 Monocytes % 5.4 Eosinophils % 0.0 Basophils % 0.4 Nucleated RBC % 0.0 Absolute Neutrophils 13.66 H Absolute Lymphocytes 0.84 L Absolute Monocytes 0.85 H Absolute Eosinophils 0.00 Absolute Basophils 0.06 Sodium 135 L Potassium 3.9 Chloride 103 Carbon Dioxide 24.8 Anion Gap 7.2 BUN 14 Creatinine 0.9 Est GFR (CKD-EPI 2020) 88.51 Glucose 204 H Calcium 7.8 L Total Bilirubin 0.55 AST 45 H ALT 97 H Alkaline Phosphatase 106 Total Protein 5.7 L Albumin 2.0 L Urine Color Urine Clarity Urine pH Ur Specific [place] Urine Protein Urine Ketones Urine Blood Urine Nitrite Urine Bilirubin Urine Urobilinogen Ur Leukocyte Esterase Urine RBC Urine WBC Ur Epithelial Cells Urine Crystals Urine Bacteria Urine Casts Urine Mucus Ur Culture Indicated? Urine Glucose Random Vancomycin 3.8 Adenovirus DNA Human Metapneumovir RNA Urine Legionella Ag Parainfluenza 1 (PCR) Parainfluenza 2 (PCR) Parainfluenza 3 (PCR) Parainfluenza 4 (PCR) Resp Viral Spec Desc Rhinovirus (PCR) Time Spent with Patient Time Spent with Patient: 25-34 minutes Time was spent: preparing to see the patient(eg.review tests), ordering medications,tests, procedures, referring, communicating with other health doggy daycare activities director, indepentently interpreting results, counseling the patient (Discussed with patient and his and I updated Dr. Pierre via WebEx) and care coordination
[2023-12-11] MEDS: Sulfameth/Trimeth DS TAB 2 TAB PO (19:52)
[2023-12-11] MEDS: Melatonin 3 MG TAB 6 MG PO (21:12)
[2023-12-11] MEDS: AZITHROMYCIN 250 MG in Normal Saline 250 ML IVPB ×2 (23:30)
[2023-12-12] VITALS: BP 107/62; RESP 18; TEMP 36.4; O2SAT 94
[2023-12-12] MEDS: Acetaminophen 325 MG TAB 650 MG PO ×2 (02:36→08:09)
[2023-12-12 02:39] VITALS: BP 120/71; PULSE 120; O2SAT 94
[2023-12-12 04:00] VITALS: O2SAT 92
[2023-12-12] MEDS: Sulfameth/Trimeth DS TAB 2 TAB PO ×3 (04:05→20:20)
[2023-12-12 06:25] LABS: Abs Immature Grans 0.66 10^3/uL (0.0-0.06); Absolute Basophil Count 0.14 10^3/uL (0.0-0.2); Absolute Eosinophil Count 0.04 10^3/uL (0.0-0.7); Absolute Lymphocyte Count 1.05 10^3/uL (1.2-3.4); Absolute Monocyte Count 1.49 10^3/uL (0.1-0.8); Basophils % 0.7 %; Eosinophils % 0.2 %; HCT 35.4 % (40.0-50.0); HGB 12.2 g/dL (13.5-17.5); Immature Grans % 3.2 %; Lymphocytes % 5.1 %; MCH 31.9 pg (27.0-33.0); MCHC 34.5 % (32.0-36.0); MCV 92 fL (80-95); MPV 9.5 fL (8.0-11.0); Monocytes % 7.2 %; Neutrophils % 83.6 %; Platelet Count 337 10^3/uL (130-400); RBC 3.83 10^6/uL (4.36-5.78); RDW 16.2 % (11.8-14.1); RDW-SD 53.1 fL; WBC 20.68 10^3/uL (4.4-10.8)
[2023-12-12 06:38] LABS: Absolute Neutrophil Count 17.29 10^3/uL (1.2-6.7)
[2023-12-12 06:46] LABS: Anion Gap 9.3 mmol/L (3-11); BUN 17 mg/dL (7-18); CO2 22.7 mmol/L (21.0-32.0); CREATININE 1.1 mg/dL (0.70-1.30); Calcium 8.4 mg/dL (8.5-10.1); Chloride 103 mmol/L (98-107); Estimated GFR 69.57 (mL/min/1.73m2); Glucose 102 mg/dL (74-106); Potassium 3.9 mmol/L (3.5-5.1); Sodium 135 mmol/L (136-145)
[2023-12-12 06:54] LABS: Diff Comment Diff Reviewed; RBC Morphology Normal
[2023-12-12] MEDS: Loratidine 10 MG TAB PO (08:09)
[2023-12-12] MEDS: Finasteride 5 MG TAB PO (08:09)
[2023-12-12] MEDS: Benzonatate 200 MG CAP PO ×3 (08:09→20:21)
[2023-12-12] MEDS: predniSONE 20 MG TAB 40 MG PO ×2 (08:09→20:21)
[2023-12-12] MEDS: Pantoprazole 40 MG TABCR PO ×2 (08:09→20:21)
[2023-12-12] MEDS: Apixaban 5 MG TAB PO ×2 (08:09→20:21)
[2023-12-12] MEDS: CEFEPIME 1 GM in Normal Saline 50 ML IVPB (08:10)
[2023-12-12] MEDS: Acyclovir 400 MG TAB PO ×2 (08:15→20:21)
[2023-12-12 08:19] VITALS: BP 95/85; PULSE 108; O2SAT 97
--- NOTE | 2023-12-12 09:46 | W.PM.PROGNOT ---
Date of Service Date of service: 12/12/23 Time of Service: 09:46 Assessment and Plan Assessment and plan (1) Pneumonia: Status: Acute Assessment and plan: Patient remains on broad-spectrum antibiotics including cefepime, vancomycin, doxycycline as well as Bactrim. Unfortunately, per my discussion w/ the labs, only pathology was sent on the BAL and this was sent to [facility] in [place], No bacterial, or fungal or TB studies were done on the BAL and no PCR for PJP was done. The lab tried to reach out to [facility] pathology to see if any gram stains or silver methenamine stain could be done however they are closed for the weekend. I informed the patient and his about this error and apologized on behalf of the hospital for this. They were obviously unhappy about this but took this calmly. I informed nursing of this error. I have asked the lab to perfrom and SQSS on this. There ought to have been better communication between the OR team, the lab and the net front end developer on the need to collect the BAL in such a way that the appropriate cultures and stains and PCR would be done. I told the patient, his and nursing that if the patient is able to cough up an adequate specimen then this should be sent for bacterial, fungal and AFB smears and cultures as well as PJP PRC testing. Qualifiers: Laterality: left Lung location: unspecified part of lung Pneumonia type: due to unspecified organism Qualified Code(s): J18.9 - Pneumonia, unspecified organism (2) Large B-cell lymphoma: Status: Acute (3) Sepsis: Status: Acute Assessment and plan: Technically meets criteria for sepsis including leukocytosis evidence for infection tachypnea however he is not showing any signs of septic shock or severe sepsis as he has no encephalopathy and no evidence for endorgan injury. Qualifiers: Sepsis acute organ dysfunction status: unspecified Sepsis type: sepsis due to unspecified organism Qualified Code(s): A41.9 - Sepsis, unspecified organism (4) Opacity of lung on imaging study: Status: Acute Assessment and plan: As above (5) History of pulmonary embolism: Status: Acute Assessment and plan: patient back on his apixaban Subjective Subjective Interval history since last seen: Abdirahman says that he feels better, he is off oxygen, still has nonproductive cough but has remained afebrile. I spoke with Abdirahman and his . I explained to him that a lot of the tests from his bronchial alveolar lavage were sent out to reference labs including [facility] in [place] and [facility]. I explained to him that we are covering for multiple possible pathogens including atypical pathogens including PJP. We will continue broad-spectrum antibiotics until we have some indication from his bronchoalveolar lavage whether or not this is a bacterial pneumonia or not. Abdirahman had trouble sleeping last night. Exam Narrative Exam Narrative: He is alert and orient x 3 lying in bed talking with his when I walked in the room he was not coughing however at the end of my visit he went into a paroxysm of coughing. Lungs diffuse fine cellophane rales no rhonchi or wheezing Heart is regular rate and rhythm Abdomen soft and nontender no organomegaly Extremities without edema or cyanosis Objective Last Vital Signs Temp 36.4 C L 12/12/23 00:00 Pulse 99 H 12/11/23 15:22 Resp 18 12/12/23 00:00 BP 107/62 12/12/23 00:00 Pulse Ox 94 12/12/23 00:00 Laboratory Results - last 24 hr 12/12/23 05:52 WBC 20.68 H RBC 3.83 L Hgb 12.2 L Hct 35.4 L MCV 92 MCH 31.9 MCHC 34.5 RDW 16.2 H Plt Count 337 MPV 9.5 Immature Gran % 3.2 Neutrophils % 83.6 Lymphocytes % 5.1 Monocytes % 7.2 Eosinophils % 0.2 Basophils % 0.7 Nucleated RBC % 0.0 Absolute Neutrophils 17.29 H Absolute Lymphocytes 1.05 L Absolute Monocytes 1.49 H Absolute Eosinophils 0.04 Absolute Basophils 0.14 RBC Morphology Normal Sodium 135 L Potassium 3.9 Chloride 103 Carbon Dioxide 22.7 Anion Gap 9.3 BUN 17 Creatinine 1.1 Est GFR (CKD-EPI 2020) 69.57 Glucose 102 Calcium 8.4 L C-Reactive Protein 7.40 H Time Spent with Patient Time Spent with Patient: >50 minutes Time was spent: preparing to see the patient(eg.review tests), ordering medications,tests, procedures, referring, communicating with other health infant caregiver, indepentently interpreting results, counseling the patient and care coordination
[2023-12-12] MEDS: VANCOMYCIN/WATER (PEG) 1.25 GM/250 ML BAG IVPB (10:40)
[2023-12-12 11:56] LABS: MRSA PCR Negative (Negative)
[2023-12-12] MEDS: CEFEPIME 2 GM in Normal Saline 100 ML IVPB (14:19)
[2023-12-12 16:50] LABS: Streptococcus Pneumoniae Ag, U Negative (Negative)
[2023-12-12 20:37] VITALS: BP 131/73; PULSE 105; O2SAT 91
[2023-12-12 20:40] VITALS: BP 134/86; PULSE 105; RESP 18; TEMP 36.9; O2SAT 94
[2023-12-13] MEDS: AZITHROMYCIN 250 MG in Normal Saline 250 ML IVPB (00:41)
[2023-12-13] MEDS: CEFEPIME 2 GM in Normal Saline 100 ML IVPB ×2 (01:47→13:30)
[2023-12-13] MEDS: Sulfameth/Trimeth DS TAB 2 TAB PO ×2 (05:49→13:31)
[2023-12-13 06:48] LABS: HCT 35.1 % (40.0-50.0); HGB 12.2 g/dL (13.5-17.5); MCH 32.4 pg (27.0-33.0); MCHC 34.8 % (32.0-36.0); MCV 93 fL (80-95); MPV 9.7 fL (8.0-11.0); Platelet Count 379 10^3/uL (130-400); RBC 3.77 10^6/uL (4.36-5.78); RDW 16.1 % (11.8-14.1); RDW-SD 53.6 fL; WBC 21.51 10^3/uL (4.4-10.8)
[2023-12-13 06:54] LABS: ESR 50 mm/hr (0-20)
[2023-12-13 07:01] LABS: ALT 84 U/L (16-63); AST 31 U/L (15-37); Albumin 2.3 g/dL (3.4-5.0); Alkaline Phosphatase 108 U/L (46-116); Anion Gap 11.7 mmol/L (3-11); BUN 21 mg/dL (7-18); Bilirubin, Total 0.24 mg/dL (0.2-1.0); C-Reactive Protein 6.58 mg/dL (<or=0.5); CO2 20.3 mmol/L (21.0-32.0); CREATININE 1.1 mg/dL (0.70-1.30); Calcium 8.6 mg/dL (8.5-10.1); Chloride 101 mmol/L (98-107); Estimated GFR 69.57 (mL/min/1.73m2); Glucose 215 mg/dL (74-106); Potassium 4.3 mmol/L (3.5-5.1); Sodium 133 mmol/L (136-145); Total Protein 6.2 g/dL (6.4-8.2)
[2023-12-13 07:02] LABS: Absolute Lymphocyte Count 0.22 10^3/uL (1.2-3.4); Absolute Monocyte Count 0.22 10^3/uL (0.1-0.8); Absolute Neutrophil Count 20.86 10^3/uL (1.2-6.7); Bands % 1 %; Diff Comment Manual Differential; Metamyelocytes % 1; RBC Morphology Normal
[2023-12-13 07:35] LABS: Procalcitonin < 0.1 ng/mL
[2023-12-13 07:38] VITALS: BP 91/77; PULSE 105; O2SAT 94
[2023-12-13 07:45] VITALS: BP 91/77; PULSE 104; RESP 12; TEMP 36.6; O2SAT 94
[2023-12-13] MEDS: Pantoprazole 40 MG TABCR PO (07:58)
[2023-12-13] MEDS: Apixaban 5 MG TAB PO (07:58)
[2023-12-13] MEDS: Benzonatate 200 MG CAP PO ×2 (07:58→13:31)
[2023-12-13] MEDS: Loratidine 10 MG TAB PO (07:58)
[2023-12-13] MEDS: Acyclovir 400 MG TAB PO (07:59)
[2023-12-13] MEDS: predniSONE 20 MG TAB 40 MG PO (08:03)
[2023-12-13] MEDS: Finasteride 5 MG TAB PO (08:03)
--- NOTE | 2023-12-13 10:08 | PGE_ITS ---
Date of Service Date of service: 12/13/23 Time of Service: 10:08 Assessment and Plan Assessment and plan (1) Pneumonia: Status: Acute Assessment and plan: Atypical pneumonia currently being treated with cefepime, azithromycin, Bactrim DS. Case discussed with Dr. Pierre, network diagnostic support specialist, via Web[employer] as well as with Dr. Paredes, infectious disease, from [facility]. As Abdirahman has improved remarkably and is not hypoxemic and has been afebrile now for 2-1/2 almost 3 days I think would be reasonable to discharge him home on a prolonged course of antibiotics including another 10 days of Bactrim DS and cefpodoxime. Because I am empirically treating him for PJP although I have no evidence of such I will send him home on a taper course of steroids along with the Bactrim DS. He will also be discharged with antitussive medications and told to follow-up closely in the pulmonary clinic at [facility] and with his oncologist at [facility]. Qualifiers: Pneumonia type: due to unspecified organism Laterality: left Lung location: unspecified part of lung Qualified Code(s): J18.9 - Pneumonia, unspecified organism (2) Large B-cell lymphoma: Status: Acute (3) Sepsis: Status: Resolved Assessment and plan: Technically met criteria for sepsis on admission including leukocytosis evidence for infection tachypnea however he is not showing any signs of septic shock or severe sepsis as he has no encephalopathy and no evidence for endorgan injury. Qualifiers: Sepsis type: sepsis due to unspecified organism Sepsis acute organ dysfunction status: unspecified Qualified Code(s): A41.9 - Sepsis, unspecified organism (4) Opacity of lung on imaging study: Status: Acute Assessment and plan: As above (5) History of pulmonary embolism: Status: Acute Assessment and plan: patient back on his apixaban Subjective Subjective Interval history since last seen: Abdirahman is doing better other than his nonproductive cough. He did bring up a specimen but I looked at this and it is nothing more than spit rather than puruelent mucous. He remains on room air and is not dyspneic. No fevers since @ 18:00 when his temp was 37.9. He still has a WBC of 21,000. Exam Narrative Exam Narrative: Abdirahman still has that dry nonproductive cough but is not dyspneic with this. Co ugh is exacerbated by deep breathing. Lungs are clear to auscultation no rhonchi or wheezing Heart is regular rate and rhythm Abdomen soft and nontender Objective Last Vital Signs Temp 36.6 C 12/13/23 07:45 Pulse 104 H 12/13/23 07:45 Resp 12 12/13/23 07:45 BP 91/77 L 12/13/23 07:45 Pulse Ox 94 12/13/23 07:45 Laboratory Results - last 24 hr 12/12/23 12/13/23 10:00 05:56 WBC 21.51 H RBC 3.77 L Hgb 12.2 L Hct 35.1 L MCV 93 MCH 32.4 MCHC 34.8 RDW 16.1 H Plt Count 379 MPV 9.7 Immature Gran % 0.0 Neutrophils % 96.0 Band Neutrophils % 1 Lymphocytes % 1.0 Monocytes % 1.0 Eosinophils % 0.0 Basophils % 0.0 Metamyelocytes % 1 Nucleated RBC % 0.0 Absolute Neutrophils 20.86 H Absolute Lymphocytes 0.22 L Absolute Monocytes 0.22 Absolute Eosinophils 0.00 Absolute Basophils 0.00 RBC Morphology Normal ESR 50 H Sodium 133 L Potassium 4.3 Chloride 101 Carbon Dioxide 20.3 L Anion Gap 11.7 H BUN 21 H Creatinine 1.1 Est GFR (CKD-EPI 2020) 69.57 Glucose 215 H Calcium 8.6 Total Bilirubin 0.24 AST 31 ALT 84 H Alkaline Phosphatase 108 C-Reactive Protein 6.58 H Total Protein 6.2 L Albumin 2.3 L Procalcitonin < 0.1 MRSA (TEM-PCR) Negative Time Spent with Patient Time Spent with Patient: 35-49 minutes Time was spent: preparing to see the patient(eg.review tests), referring, communicating with other health patient care specialist ( and Dr. Gaspar), indepentently interpreting results, counseling the patient and care coordination
[2023-12-13 10:35] VITALS: PULSE 111; RESP 14; O2SAT 91; O2SAT 93
--- NOTE | 2023-12-13 12:44 | PDOC.CMDIS ---
Date of service: 12/13/23 Time of Service: 12:44 LACE Index Scoring Tool Questions: Length of Stay (in days): 3 Was the patient admitted via the E.D.?: Yes Comorbidities: Any Tumor E.D. Visits: 1 Answers: Total Score: 9 Risk of Readmission: Low Risk Care Management Discharge Plan Reason for Hospitalization: pneumonia Patient/Family Education Needs: review of discharge instructions, activity, limitations, follow up plan, discuss [facility] Health Related Social Needs: No Data to Display
[2023-12-13 13:20] VITALS: BP 131/70; PULSE 103; RESP 14; TEMP 36.7; O2SAT 94
[2023-12-13 13:22] VITALS: BP 131/70; PULSE 101
--- NOTE | 2023-12-13 14:55 | DSE_ITS ---
Date of service: 12/13/23 Time of Service: 14:56 DS: Diagnosis Discharge Diagnosis (1) Pneumonia: Status: Acute Asessment and Plan: Patient presented with fever chills dyspnea and mild hypoxemia and was found to have diffuse groundglass opacifications in the left lung as well as hilar and paratracheal masses. Patient has known large B-cell lymphoma. Blood cultures were obtained came back no growth. Sputum culture was never able to be obtained as he had a nonproductive cough. He was seen by pulmonology Dr. Genoveva Pierre who performed bronchoscopy with bronchoalveolar lavage. See her operative note for details. In summary he had an eroding mass in the right mainstem bronchus and lavage was obtained from the left upper lung. 50 mL were obtained and sent for cytology and reportedly was sent for bacterial and fungal cultures as well as cell count and differential and PJP PCR testing. Unfortunately none of the cultures were obtained and all the sample was sent for cytology to the pathology department at the [facility]. Urine Legionella antigen came back negative, nasal MRSA screen was negative. Fluvid swab obtained on admission was negative. Expanded respiratory panel PCR came back negative for adenovirus, parainfluenza x 1 through 4, RSV, rhinovirus. Urine strep pneumococcal antigen is pending at this time. Beta 1, 3-D-glucan (Fungitell) test is pending at this time. Patient was treated with broad-spectrum antibiotics including initially with vancomycin, cefepime, azithromycin but when his MRSA screen came back negative vancomycin was discontinued. He was continued on the cefepime and azithromycin and Bactrim was added for coverage for PJP. Patient was begun on prednisone in accordance with PJP treatment protocol. Patient's fever defervesced his hypoxemia improved and he was weaned to room air. The last 2 days of his hospitalization he had no fevers no chills no sputum production and no increased oxygen requirements he was back to room air and ambulating without any dyspnea or hypoxemia. Patient will be discharged home on 10 more days of cefpodoxime 200 mg p.o. twice daily, 5 more days of azithromycin 250 mg daily and a 21-day course of Bactrim DS along with taper dose of prednisone per treatment protocol for PJP. His case was discussed with infectious disease service from [facility] and the above plan was felt to be reasonable treatment plan for outpatient treatment of his pneumonia. Antifungals were entertained but as the patient quickly defervesced on antibiotics no antifungals were prescribed. (2) Large B-cell lymphoma: Status: Acute (3) Sepsis: Status: Resolved (4) Opacity of lung on imaging study: Status: Acute (5) History of pulmonary embolism: Status: Acute Discharge Plan Disposition Patient Disposition: Home Condition: Improving Discharge Details Reason For Visit: pneumonia Admit Date/Time: 12/10/23 00:35 Admit Provider: Demetrius Mai Attending Provider: Demetrius Mai Primary Care Provider: Unknown,Unknown Hospital Course Hospital Course: see above for details of hospital course, see H&P for details of presenting signs/symptoms and history Home Meds and New Rx's Prescriptions: New cefpodoxime 200 mg tablet 200 mg PO BID 10 Days Qty: 20 0RF Rx Instructions: must administer with a meal/food sulfamethoxazole-trimethoprim [Bactrim DS] 800-160 mg tablet 2 tab PO Q8H 21 Days Qty: 126 0RF azithromycin 250 mg tablet 250 mg PO DAILY 5 Days Qty: 5 0RF benzonatate 200 mg capsule 200 mg PO TID PRNQty: 30 0RF prednisone 20 mg tablet See Taper PO BID Qty: 41 0RF Taper: Prednisone 20mg taper 40 mg Q12H for 5 Days and 0 Hour 40 mg Daily for 5 Days and 0 Hour 20 mg Daily for 11 Days and 0 Hour promethazine-codeine 6.25-10 mg/5 mL syrup 10 ml PO Q6H MDD 40 mL PRN (Reason: cough) Qty: 118 0RF Continued Eliquis 5 mg tablet 10 mg PO BID Patient Comments: TAKE TWO TABLETS BY MOUTH TWICE A DAY FOR 6 DAYS, THEN TAKE ONE TABLET BY MOUTH TWICE A DAY FOR 24 DAYS acyclovir 400 mg tablet 400 mg PO BID Patient Comments: TAKE ONE TABLET BY MOUTH TWICE A DAY loratadine 10 mg tablet 10 mg PO DAILY finasteride 5 mg tablet 5 mg PO DAILY pantoprazole 40 mg tablet,delayed release (DR/EC) 40 mg PO DAILY Patient Comments: TAKE ONE TABLET BY MOUTH EVERY DAY Discharge Instructions Instructions: Azithromycin (Systemic), Community-acquired pneumonia in adults, Cefpodoxime, Sulfamethoxazole and Trimethoprim, Prednisone Additional Instructions: You were treat for an atypical pneumonia. You presented w/ a dry cough, fever, chills and low oxygen levels. Your CT of your chest showed the known lyphoma mass in your chest but also showed diffuse ground glass-like patchy changes in your left lung consistent w/ a pneumonia/pneumonitis. Blood cultures were obtained and came back w/ no growth. You were never able to produce a sputum for us to culture. You had a bronchoscopy performed on 12/10/2023. Dr. Gaspar performed this. She found an eroding mas in the anterior right main stem bronchus. Dr. Gaspar performed a lavage from the left lung and 50 mL of fluid returned and was sent to the lab. Bacterial and fungal cultures and pathology was sent. Unfortunately, the cultures were never performed although a specimen was sent to pathology at the [facility] and is pending at this time. Your pneumonia was treated w/ broad spectrum antibiotics including Vancomycin, azithromycin, cefepime and trimethoprim/sulfamethoxazole. The vancomycin was stopped when we got back a nasal screen for MRSA staph which was negative. Your urine legionella antigen test was negative. Your urine strep antigen test is still pending. You should complete another 5 days of azithromycin and 10 days of cefpodoxime and 21 days of Bactrim (sulfamethoxazole/trimethoprim). Because we were not able to exclude pneumocystis infection, we are continuing the Bactrim which must be taken w/ a prednisone (steroid taper). Please follow up w/ your oncologist, Dr. Jones and with your hot box operator, Dr. Connors. Also follow up next week w/ your primary care provider, Dr. Kevin Ellison and get follow up chest xray in 2 to 3 weeks Referrals: Jil Jones MD [ NON-[facility] STAFF PHYSICIAN] - (call the office on Thursday for follow up in the next 2 weeks) Kevin Ellison MD [ NON-[facility] STAFF PHYSICIAN] - (call on Thursday for follow up) DEMETRIUS BUCHANAN MD [ NON-[facility] STAFF PHYSICIAN] - (call to get an appointment in the next 2 to 3 weeks) Activity:: Activity as Tolerated Equipment/Supplies:: No Equipment Needed Diet:: Normal Diet Discharge Orders Discharge Orders: Discharge Order (Routine); Ordered 12/13/23 Ordered By: Pro New Other Ambulatory Orders: Basic Metabolic Panel (Routine) Timeframe: 1 Week Facility: [facility] - Location: Laboratory Outpatient - [facility] Ordered By: Pro New Complete Blood Count w/Diff (Routine) Timeframe: 1 Week Facility: [facility] - Location: Laboratory Outpatient - [facility] Ordered By: Pro New XR chest 2V PA & lateral (Routine) Timeframe: 2 Weeks Facility: [facility] - Location: DIAGNOSTIC IMAGING DEPT Ordered By: Pro New DS: Summary Time Spent with Patient providing and/or coordinating discharge services: Greater than 30 minutes Specific discharge activities: Interview/exam of patient; review of discharge instructions, completion of prescriptions/discharge instructions; discussion w/ nursing and CM; documentation of hospital visit Status at Discharge Functional status at discharge: independent ambulation Overall status at discharge: patient is progressing back to baseline Mental Status: mental status grossly normal Speech and Movement: speech and movement normal Mood: congruent mood Affect: normal affect Quality:SDOH Health Related Social Needs: No Data to Display Exam Narrative Exam Narrative: Abdirahman jeff has that dry nonproductive cough but is not dyspneic with this. Cough is exacerbated by deep breathing. Lungs are clear to auscultation no rhonchi or wheezing Heart is regular rate and rhythm Abdomen soft and nontender Psych Mental Status: mental status grossly normal Speech and Movement: speech and movement normal Mood: congruent mood Affect: normal affect DS: Data Vitals/I&O Vitals and I&O: Vital Signs Temperature 36.7 C 12/13/23 13:20 Temperature Source Temporal Artery Scan 12/13/23 13:20 Pulse 101 H 12/13/23 13:22 Pulse Rhythm Regular 12/13/23 13:15 Pulse 93 H 12/11/23 10:22 Respiratory Rate 14 12/13/23 13:20 Respiratory Effort Normal, Non-Labored 12/13/23 13:15 Respiratory Depth Normal 12/13/23 13:15 Respiratory Pattern Normal 12/13/23 13:15 Blood Pressure 131/70 12/13/23 13:22 Blood Pressure Mean 88 12/13/23 13:22 Blood Pressure Position Supine 12/11/23 07:30 Pulse Oximetry 94 12/13/23 13:20 Respiratory End-tidal CO2 21 12/10/23 17:48 Oxygen Delivery Method Room Air 12/13/23 13:20 Oxygen Flow Rate 0 12/13/23 13:20 Pain Level 0 12/13/23 13:20 Comment documented under capture monitor vital signs 12/11/23 16:30 Intake & Output 12/12/23 12/13/23 12/13/23 23:59 11:59 23:59 Intake Total 800 / 1600 360 / 460 100 / 460 Output Total 875 / 1775 400 / 400 Balance -75 / -175 -40 / 60 100 / 60 Intake: IV 400 / 1200 360 / 460 100 / 460 Oral 400 / 400 Output: Urine 875 / 1775 400 / 400 Other: Urine Color Yellow Yellow Urine Appearance Clear Clear Clear Urine Odor Normal Voiding Methods Urinal Urinal Data Completed and Pending Labs on day of discharge: Labs from last 24 hours 12/13/23 05:56 WBC 21.51 H RBC 3.77 L Hgb 12.2 L Hct 35.1 L MCV 93 MCH 32.4 MCHC 34.8 RDW 16.1 H Plt Count 379 MPV 9.7 Immature Gran % 0.0 Neutrophils % 96.0 Band Neutrophils % 1 Lymphocytes % 1.0 Monocytes % 1.0 Eosinophils % 0.0 Basophils % 0.0 Metamyelocytes % 1 Nucleated RBC % 0.0 Absolute Neutrophils 20.86 H Absolute Lymphocytes 0.22 L Absolute Monocytes 0.22 Absolute Eosinophils 0.00 Absolute Basophils 0.00 RBC Morphology Normal ESR 50 H Sodium 133 L Potassium 4.3 Chloride 101 Carbon Dioxide 20.3 L Anion Gap 11.7 H BUN 21 H Creatinine 1.1 Est GFR (CKD-EPI 2020) 69.57 Glucose 215 H Calcium 8.6 Total Bilirubin 0.24 AST 31 ALT 84 H Alkaline Phosphatase 108 C-Reactive Protein 6.58 H Total Protein 6.2 L Albumin 2.3 L Procalcitonin < 0.1 Preliminary micro results at discharge 12/09/23 20:58 Blood Culture - Preliminary Blood NO GROWTH 72 HOURS 12/09/23 21:15 Blood Culture - Preliminary Blood NO GROWTH 72 HOURS PFSH All Active Problems (Updated 12/13/23 @ 15:14 by Pro New MD) Medication monitoring encounter (Acute) History of pulmonary embolism (Acute) Opacity of lung on imaging study (Acute) Fever (Acute) Pneumonia (Acute) Large B-cell lymphoma (Acute) Wears hearing aid in both ears (Acute) Sensorineural hearing loss, bilateral (Acute) Sensory hearing loss, bilateral (Acute) Social History Smoking/Tobacco Use Status: Never Smoking risk assessment performed?: Yes Substance use type: does not use Time Spent with Patient Time Spent with Patient: 45-69 minutes (60 minutes including face/face time, completion of Rx and dc instructions, communication w/ tertiary care) Time was spent: preparing to see the patient(eg.review tests), ordering medications,tests, procedures, referring, communicating with other health healthcare economics consultant, indepentently interpreting results, counseling the patient and care coordination
[2023-12-14 15:15] LABS: Histoplasma/Blastomyces Result Not Detected; Histoplasma/Blastomyces Value Not Detected
[2023-12-14 19:55] LABS: Fungitell Qualitative Positive (Negative); Fungitell Quantitative Value 310 pg/mL (<60 pg/mL)
== END 2023-12-13 15:45 | disposition home or self-care (01) | DRG 871 ==
LOC: ER 12-10 01:08 → MS 12-10 01:11 → ICU 12-10 18:35
PROVIDERS: Emergency Medicine; Internal Medicine; Internal Medicine Critical Care Medicine; Admitting Provider General Practice; Emergency Provider Nurse Practitioner Family; Visit Provider General Practice
PROC: 0BJ08ZZ Inspection of Tracheobronchial Tree, Via Natural or Artificial Opening Endoscopic (ICD-10-PCS; CPT 31622; principal; 2023-12-10 16:30)
DX: J18.9 Pneumonia, unspecified organism; C83.32 Diffuse large B-cell lymphoma, intrathoracic lymph nodes; A41.9 Sepsis, unspecified organism; R91.8 Other nonspecific abnormal finding of lung field; Z86.711 Personal history of pulmonary embolism; R05.3 Chronic cough; H90.3 Sensorineural hearing loss, bilateral; Z79.01 Long term (current) use of anticoagulants; R84.6 Abnormal cytological findings in specimens from respiratory organs and thorax
CPT/HCPCS: 31624; 00123; 36415; 80048; 80053; 80162; 84145; 85027; 85652; 87040; 87070; 87102; 87116; 87205; 87206; 87449; 87632; 87637; 87641; 87798; 87880; 96365; 96366; 96367; 99222; 99285; 71046; 71260; 80202; 81003; 81015; 83605; 83735; 85025; 86140; 87081; 87581; 87899; 88104; 88312; 99231; 99233; 99239; J0456; J0692; J1100; J2001; J2371; J2405; J2704; J3010; J3370; J3372; J3490; J7512

== ENCOUNTER 2023-12-22 05:29 | Outpatient (CLI) | payer MEDICARE, SELFPAY ==
[2023-12-22 15:16] LABS: HCT 37.5 % (40.0-50.0); MCH 32.3 pg (27.0-33.0); MCHC 34.7 % (32.0-36.0); MCV 93 fL (80-95); MPV 8.6 fL (8.0-11.0); Platelet Count 387 10^3/uL (130-400); RBC 4.02 10^6/uL (4.36-5.78); RDW 17.3 % (11.8-14.1); RDW-SD 57.9 fL; WBC 16.03 10^3/uL (4.4-10.8)
[2023-12-22 15:36] LABS: Absolute Neutrophil Count 14.91 10^3/uL (1.2-6.7); Bands % 2 %; Diff Comment Manual Differential; Metamyelocytes % 2; RBC Morphology Normal
[2023-12-22 16:18] LABS: Anion Gap 10.5 mmol/L (3-11); BUN 23 mg/dL (7-18); CO2 20.5 mmol/L (21.0-32.0); CREATININE 1.3 mg/dL (0.70-1.30); Calcium 8.7 mg/dL (8.5-10.1); Chloride 102 mmol/L (98-107); Estimated GFR 56.93 (mL/min/1.73m2); Glucose 267 mg/dL (74-106); Potassium 4.7 mmol/L (3.5-5.1); Sodium 133 mmol/L (136-145)
== END 2023-12-22 05:30 | disposition home or self-care (01) ==
PROVIDERS: Visit Provider Internal Medicine
DX: Z51.81 Encounter for therapeutic drug level monitoring (principal); C85.10 Unspecified B-cell lymphoma, unspecified site; J18.9 Pneumonia, unspecified organism
CPT/HCPCS: 36415; 80048; 85025

== ENCOUNTER 2024-01-18 02:41 | Outpatient (RCR) | payer MEDICARE, SELFPAY ==
[2024-01-11 08:17] LABS: HCT 33.5 % (40.0-50.0); HGB 11.6 g/dL (13.5-17.5); MCH 33.1 pg (27.0-33.0); MCHC 34.6 % (32.0-36.0); MCV 96 fL (80-95); MPV 10.4 fL (8.0-11.0); Platelet Count 146 10^3/uL (130-400); RDW 16.3 % (11.8-14.1); RDW-SD 57.3 fL; WBC 16.27 10^3/uL (4.4-10.8)
[2024-01-11 08:40] LABS: Absolute Lymphocyte Count 0.33 10^3/uL (1.2-3.4); Absolute Neutrophil Count 15.94 10^3/uL (1.2-6.7); Bands % 1 %; Diff Comment Manual Differential; RBC Morphology Normal
[2024-01-11 08:43] LABS: ALT 131 U/L (16-63); AST 35 U/L (15-37); Albumin 2.8 g/dL (3.4-5.0); Alkaline Phosphatase 70 U/L (46-116); Anion Gap 9.9 mmol/L (3-11); BUN 27 mg/dL (7-18); Bilirubin, Total 1.09 mg/dL (0.2-1.0); CO2 24.1 mmol/L (21.0-32.0); CREATININE 0.9 mg/dL (0.70-1.30); Calcium 8.2 mg/dL (8.5-10.1); Chloride 104 mmol/L (98-107); Estimated GFR 88.51 (mL/min/1.73m2); Glucose 150 mg/dL (74-106); LDH 396 U/L (85-227); Potassium 3.4 mmol/L (3.5-5.1); Sodium 138 mmol/L (136-145); Total Protein 5.4 g/dL (6.4-8.2); Uric Acid 2.8 mg/dL (3.5-7.2)
[2024-01-14] MEDS: Normal Saline Flush 10 ML SYR IVP (08:08)
[2024-01-14 08:27] LABS: HCT 33.8 % (40.0-50.0); HGB 11.5 g/dL (13.5-17.5); MCH 33.9 pg (27.0-33.0); MCV 100 fL (80-95); MPV 10.9 fL (8.0-11.0); Platelet Count 104 10^3/uL (130-400); RBC 3.39 10^6/uL (4.36-5.78); RDW 15.9 % (11.8-14.1); RDW-SD 58.5 fL
[2024-01-14 08:40] LABS: ALT 69 U/L (16-63); AST 14 U/L (15-37); Albumin 2.6 g/dL (3.4-5.0); Alkaline Phosphatase 64 U/L (46-116); Anion Gap 4.7 mmol/L (3-11); BUN 19 mg/dL (7-18); Bilirubin, Total 0.76 mg/dL (0.2-1.0); CO2 27.3 mmol/L (21.0-32.0); CREATININE 0.9 mg/dL (0.70-1.30); Calcium 7.8 mg/dL (8.5-10.1); Chloride 102 mmol/L (98-107); Estimated GFR 88.51 (mL/min/1.73m2); Glucose 197 mg/dL (74-106); Potassium 4.1 mmol/L (3.5-5.1); Sodium 134 mmol/L (136-145); Total Protein 5.2 g/dL (6.4-8.2)
[2024-01-14 09:24] LABS: WBC 0.47 10^3/uL (4.4-10.8)
[2024-01-14 09:27] LABS: Absolute Eosinophil Count 0.01 10^3/uL (0.0-0.7); Absolute Lymphocyte Count 0.41 10^3/uL (1.2-3.4); Absolute Monocyte Count 0.04 10^3/uL (0.1-0.8); Atypical Lymphocytes % 10 %
[2024-01-14 09:29] LABS: Absolute Neutrophil Count 0.01 10^3/uL (1.2-6.7)
[2024-01-14 09:30] LABS: Diff Comment Manual Differential; RBC Morphology Normal
[2024-01-18 09:03] LABS: HCT 34.2 % (40.0-50.0); HGB 12.1 g/dL (13.5-17.5); MCH 33.9 pg (27.0-33.0); MCHC 35.4 % (32.0-36.0); MCV 96 fL (80-95); Platelet Count 150 10^3/uL (130-400); RBC 3.57 10^6/uL (4.36-5.78); RDW 16.3 % (11.8-14.1); RDW-SD 57.4 fL; WBC 17.07 10^3/uL (4.4-10.8)
[2024-01-18 09:16] LABS: ALT 44 U/L (16-63); AST 33 U/L (15-37); Albumin 2.3 g/dL (3.4-5.0); Alkaline Phosphatase 74 U/L (46-116); BUN 16 mg/dL (7-18); Bilirubin, Total 0.58 mg/dL (0.2-1.0); CREATININE 1.1 mg/dL (0.70-1.30); Calcium 7.2 mg/dL (8.5-10.1); Chloride 98 mmol/L (98-107); Estimated GFR 69.57 (mL/min/1.73m2); Glucose 199 mg/dL (74-106); Potassium 3.9 mmol/L (3.5-5.1); Sodium 134 mmol/L (136-145)
[2024-01-18] MEDS: Normal Saline Flush 10 ML SYR IVP (09:18)
[2024-01-18 09:21] LABS: Absolute Lymphocyte Count 4.78 10^3/uL (1.2-3.4); Absolute Monocyte Count 1.02 10^3/uL (0.1-0.8); Absolute Neutrophil Count 10.92 10^3/uL (1.2-6.7); Atypical Lymphocytes % 7 %; Bands % 13 %
[2024-01-18 09:22] LABS: Diff Comment Manual Differential; Metamyelocytes % 2; RBC Morphology Normal
== END 2024-01-18 23:59 | disposition home or self-care (01) ==
LOC: INF 02:41
PROVIDERS: PCP Family Medicine; Visit Provider Internal Medicine Hematology & Oncology
DX: C83.30 Diffuse large B-cell lymphoma, unspecified site (principal); C83.32 Diffuse large B-cell lymphoma, intrathoracic lymph nodes
CPT/HCPCS: 36415; 36591; 80053; 86850; 86900; 86901; 83615; 84550; 85025

== ENCOUNTER 2024-02-11 02:17 | Outpatient (RCR) | payer MEDICARE, SELFPAY ==
[2024-01-21] MEDS: Normal Saline Flush 10 ML SYR IVP (08:05)
[2024-01-21 08:30] LABS: HCT 33.1 % (40.0-50.0); HGB 10.8 g/dL (13.5-17.5); MCH 33.1 pg (27.0-33.0); MCHC 32.6 % (32.0-36.0); MCV 102 fL (80-95); MPV 9.4 fL (8.0-11.0); Platelet Count 265 10^3/uL (130-400); RBC 3.26 10^6/uL (4.36-5.78); RDW 17.7 % (11.8-14.1); RDW-SD 64.1 fL
[2024-01-21 09:02] LABS: Absolute Lymphocyte Count 6.73 10^3/uL (1.2-3.4); Absolute Neutrophil Count 20.18 10^3/uL (1.2-6.7); Atypical Lymphocytes % 7 %; Bands % 7 %
[2024-01-21 09:03] LABS: Absolute Eosinophil Count 2.35 10^3/uL (0.0-0.7); Absolute Monocyte Count 1.01 10^3/uL (0.1-0.8); Metamyelocytes % 13; Myelocytes % 3
[2024-01-21 09:04] LABS: ALT 67 U/L (16-63); AST 50 U/L (15-37); Albumin 2.4 g/dL (3.4-5.0); Alkaline Phosphatase 104 U/L (46-116); Anion Gap 4.1 mmol/L (3-11); BUN 12 mg/dL (7-18); Bilirubin, Total 0.37 mg/dL (0.2-1.0); CO2 27.9 mmol/L (21.0-32.0); Calcium 8.1 mg/dL (8.5-10.1); Chloride 102 mmol/L (98-107); Diff Comment Manual Differential; Glucose 181 mg/dL (74-106); Potassium 3.9 mmol/L (3.5-5.1); RBC Morphology Normal; Sodium 134 mmol/L (136-145)
[2024-01-21 09:09] LABS: WBC 33.63 10^3/uL (4.4-10.8)
[2024-02-01] MEDS: Normal Saline Flush 10 ML SYR IVP (08:40)
[2024-02-01 08:50] LABS: HCT 28.6 % (40.0-50.0); HGB 9.9 g/dL (13.5-17.5); MCH 34.1 pg (27.0-33.0); MCHC 34.6 % (32.0-36.0); MCV 99 fL (80-95); MPV 11.2 fL (8.0-11.0); Platelet Count 187 10^3/uL (130-400); RDW 16.6 % (11.8-14.1)
[2024-02-01 09:12] LABS: Absolute Neutrophil Count 27.99 10^3/uL (1.2-6.7); Diff Comment Manual Differential; RBC Morphology Normal
[2024-02-01 09:14] LABS: ALT 99 U/L (16-63); AST 31 U/L (15-37); Albumin 2.6 g/dL (3.4-5.0); Alkaline Phosphatase 93 U/L (46-116); Anion Gap 6.6 mmol/L (3-11); BUN 20 mg/dL (7-18); Bilirubin, Total 0.91 mg/dL (0.2-1.0); CO2 28.4 mmol/L (21.0-32.0); CREATININE 0.8 mg/dL (0.70-1.30); Calcium 8.2 mg/dL (8.5-10.1); Chloride 108 mmol/L (98-107); Estimated GFR 91.72 (mL/min/1.73m2); Glucose 203 mg/dL (74-106); Potassium 3.8 mmol/L (3.5-5.1); Sodium 143 mmol/L (136-145)
[2024-02-01 09:16] LABS: WBC 27.99 10^3/uL (4.4-10.8)
[2024-02-04] MEDS: Normal Saline Flush 10 ML SYR IVP (08:04)
[2024-02-04 08:26] LABS: HCT 27.8 % (40.0-50.0); HGB 9.5 g/dL (13.5-17.5); MCH 33.7 pg (27.0-33.0); MCHC 34.2 % (32.0-36.0); MCV 99 fL (80-95); MPV 12.9 fL (8.0-11.0); RBC 2.82 10^6/uL (4.36-5.78); RDW 15.9 % (11.8-14.1); RDW-SD 57.1 fL
[2024-02-04 08:40] LABS: ALT 55 U/L (16-63); AST 12 U/L (15-37); Albumin 2.8 g/dL (3.4-5.0); Alkaline Phosphatase 84 U/L (46-116); BUN 19 mg/dL (7-18); Bilirubin, Total 0.77 mg/dL (0.2-1.0); CREATININE 0.9 mg/dL (0.70-1.30); Calcium 8.5 mg/dL (8.5-10.1); Chloride 106 mmol/L (98-107); Estimated GFR 88.51 (mL/min/1.73m2); Glucose 178 mg/dL (74-106); Potassium 4.1 mmol/L (3.5-5.1); Sodium 142 mmol/L (136-145); Total Protein 5.5 g/dL (6.4-8.2)
[2024-02-04 09:42] LABS: Absolute Eosinophil Count 0.01 10^3/uL (0.0-0.7); Absolute Lymphocyte Count 0.33 10^3/uL (1.2-3.4); Absolute Monocyte Count 0.07 10^3/uL (0.1-0.8); Atypical Lymphocytes % 10 %; Bands % 0 %; Diff Comment Manual Differential; Metamyelocytes % 3; Myelocytes % 1; Other Cells % 0; Promyelocytes % 0; RBC Morphology Normal
[2024-02-04 09:44] LABS: Platelet Count 65 10^3/uL (130-400)
[2024-02-04 09:46] LABS: WBC 0.44 10^3/uL (4.4-10.8)
[2024-02-04 09:47] LABS: Absolute Neutrophil Count 0.01 10^3/uL (1.2-6.7)
[2024-02-08] MEDS: Normal Saline Flush 10 ML SYR IVP ×2 (08:15→08:39)
[2024-02-08 08:28] LABS: Abs Immature Grans 14.53 10^3/uL (0.0-0.06); HCT 27.3 % (40.0-50.0); HGB 9.2 g/dL (13.5-17.5); MCH 34.1 pg (27.0-33.0); MCHC 33.7 % (32.0-36.0); MCV 101 fL (80-95); MPV 10.3 fL (8.0-11.0); RDW 17.2 % (11.8-14.1); RDW-SD 62.4 fL
[2024-02-08 08:52] LABS: ALT 53 U/L (16-63); AST 50 U/L (15-37); Albumin 2.7 g/dL (3.4-5.0); Alkaline Phosphatase 109 U/L (46-116); Anion Gap 9.1 mmol/L (3-11); BUN 16 mg/dL (7-18); Bilirubin, Total 0.54 mg/dL (0.2-1.0); CO2 24.9 mmol/L (21.0-32.0); CREATININE 1.1 mg/dL (0.70-1.30); Calcium 8.3 mg/dL (8.5-10.1); Chloride 104 mmol/L (98-107); Estimated GFR 69.57 (mL/min/1.73m2); Glucose 188 mg/dL (74-106); Potassium 3.4 mmol/L (3.5-5.1); Sodium 138 mmol/L (136-145); Total Protein 5.2 g/dL (6.4-8.2)
[2024-02-08 09:10] LABS: Absolute Eosinophil Count 0.42 10^3/uL (0.0-0.7); Absolute Monocyte Count 3.39 10^3/uL (0.1-0.8); Absolute Neutrophil Count 26.28 10^3/uL (1.2-6.7); Bands % 3 %; Diff Comment Manual Differential; Metamyelocytes % 11; Myelocytes % 11; RBC Morphology Normal
[2024-02-08 09:43] LABS: Absolute Lymphocyte Count 2.12 10^3/uL (1.2-3.4); WBC 42.38 10^3/uL (4.4-10.8)
[2024-02-08 09:44] LABS: Other Cells % 2; Platelet Count 82 10^3/uL (130-400)
[2024-02-11] MEDS: Normal Saline Flush 10 ML SYR IVP (07:50)
[2024-02-11 08:02] LABS: HCT 28.1 % (40.0-50.0); HGB 9.6 g/dL (13.5-17.5); MCH 34.7 pg (27.0-33.0); MCHC 34.2 % (32.0-36.0); MCV 101 fL (80-95); MPV 9.5 fL (8.0-11.0); Platelet Count 157 10^3/uL (130-400); RBC 2.77 10^6/uL (4.36-5.78); RDW 18.4 % (11.8-14.1); RDW-SD 64.6 fL
[2024-02-11 08:04] LABS: WBC 31.92 10^3/uL (4.4-10.8)
[2024-02-11 08:15] LABS: ALT 55 U/L (16-63); AST 38 U/L (15-37); Albumin 2.8 g/dL (3.4-5.0); Alkaline Phosphatase 114 U/L (46-116); BUN 19 mg/dL (7-18); Calcium 8.6 mg/dL (8.5-10.1); Chloride 106 mmol/L (98-107); Glucose 151 mg/dL (74-106); Potassium 3.7 mmol/L (3.5-5.1); Sodium 140 mmol/L (136-145); Total Protein 5.5 g/dL (6.4-8.2)
[2024-02-11 08:35] LABS: Absolute Lymphocyte Count 2.23 10^3/uL (1.2-3.4); Absolute Monocyte Count 1.28 10^3/uL (0.1-0.8); Absolute Neutrophil Count 25.86 10^3/uL (1.2-6.7); Bands % 16 %
[2024-02-11 08:36] LABS: Diff Comment Manual Differential; Metamyelocytes % 7; Myelocytes % 1; RBC Morphology Normal
== END 2024-02-18 23:59 | disposition home or self-care (01) ==
LOC: INF 02:17
PROVIDERS: Nurse Practitioner Adult Health; PCP Family Medicine; Visit Provider Internal Medicine Hematology & Oncology
DX: C83.32 Diffuse large B-cell lymphoma, intrathoracic lymph nodes; Z45.2 Encounter for adjustment and management of vascular access device
CPT/HCPCS: 36591; 80053; 86850; 86900; 86901; 96523; 85025

== ENCOUNTER 2024-02-24 10:29 | Emergency (ER) | payer MEDICARE, SELFPAY ==
[2024-02-24] VITALS (42 sets, daily range): BP systolic 84–125; BP diastolic 52–64; PULSE 98–119; RESP 9–33; TEMP 36–36.8; O2SAT 89–100
--- NOTE | 2024-02-24 10:30 | RT.EKG_ITS ---
APPROVED REPORT Exam: Resting ECG Reason for Exam: syncope Patient Location: E HR:106 bpm ECG Measurements Heart Rate 106 AXIS MO 130 P 58 QRSd 87 QRS 52 QT 341 T 23 QTc 454 Conclusion Sinus tachycardia...rate> 99 Physician: no stemi
--- NOTE | 2024-02-24 10:39 | W.ED.GENAD ---
Discharge Plan Disposition Patient Disposition: Home Condition: Good Discharge Details Clinical Impression: Chemotherapy adverse reaction, Anemia, Thrombocytopenia, Leukopenia, Hypocalcemia, Hematuria Primary Care Provider: Kevin Ellison ED Provider: Judith Bo Home Meds and New Rx's Prescriptions: Continued Eliquis 5 mg tablet 10 mg PO BID Patient Comments: TAKE TWO TABLETS BY MOUTH TWICE A DAY FOR 6 DAYS, THEN TAKE ONE TABLET BY MOUTH TWICE A DAY FOR 24 DAYS acyclovir 400 mg tablet 400 mg PO BID Patient Comments: TAKE ONE TABLET BY MOUTH TWICE A DAY loratadine 10 mg tablet 10 mg PO DAILY finasteride 5 mg tablet 5 mg PO DAILY pantoprazole 40 mg tablet,delayed release (DR/EC) 40 mg PO DAILY Patient Comments: TAKE ONE TABLET BY MOUTH EVERY DAY benzonatate 200 mg capsule 200 mg PO TID PRNQty: 30 0RF prednisone 20 mg tablet See Taper PO BID Qty: 41 0RF Taper: Prednisone 20mg taper 40 mg Q12H for 5 Days and 0 Hour 40 mg Daily for 5 Days and 0 Hour 20 mg Daily for 11 Days and 0 Hour promethazine-codeine 6.25-10 mg/5 mL syrup 10 ml PO Q6H MDD 40 mL PRN (Reason: cough) Qty: 118 0RF Discharge Instructions Instructions: Chemo Brain Additional Instructions: As we discussed, your imaging is reassuring here today. No evidence to suggest a pneumonia, urinary tract infection or other infectious process at this time. However, your blood counts are downtrending, likely associated with the chemotherapy. This may be causing some of your symptoms. Oncology at [facility] feels the same, they advised that with each round the symptoms can get more notable. Please follow the recommendations and keep your upcoming appointment. I have referred you to palliative care to help manage side effects during this difficult time. You did have a scant amount of blood in your urine, this is likely associated with your blood thinner, please discuss further with your primary care doctor. Please get plenty of rest and make sure to increase your hydration. The goal should be for your urine to be fairly clear. Please drink at least 10 cups of water a day. Please continue to measure your temperature twice a day as was recommended by your Oncology team. Please continue with medications as previously prescribed. If you develop any symptoms of infection, please seek care urgently once again. Referrals: Kevin Ellison MD [Primary Care Provider] - Discharge Data Discharge Date/Time-TO BE ENTERED AT DEPARTURE: 02/24/24 16:00 HPI General Date/Time Provider Initiated Documentation: 02/24/24 10:39. Limitations to Documentation: no limitations. Information obtained by: patient, family, RN notes reviewed and old records reviewed. History of Present Illness 78 year old M presents to the emergency department with the chief complaint of General unwell, fatigue, weakness, described as severe and similar to prior episodes (Has been worsening after each chemotherapeutic session), Quality is described as other (Denies any pain), Patient started experiencing this day(s) and it has been constant. No relieving factors improve symptom(s), Medication worsens symptoms . Patient notes malaise and weakness (Generalized); denies chest pain, cough, diaphoresis, fever/chills, headaches, loss of appetite, nausea/vomiting, rash, shortness of breath and syncope. Patient did receive the following treatments prior to arrival, none Related Data Home Medications ?Medication ?Instructions ?Recorded ?Confirmed acyclovir 400 mg tablet 400 mg PO BID 12/09/23 02/24/24 apixaban 5 mg tablet (Eliquis) 10 mg PO BID 12/09/23 02/24/24 finasteride 5 mg tablet 5 mg PO DAILY 12/09/23 02/24/24 loratadine 10 mg tablet 10 mg PO DAILY 12/09/23 02/24/24 pantoprazole 40 mg tablet,delayed 40 mg PO DAILY 12/09/23 02/24/24 release benzonatate 200 mg capsule 200 mg PO TID PRN #30 caps 12/13/23 02/24/24 prednisone 20 mg tablet See Taper PO BID #41 tabs 12/13/23 02/24/24 promethazine 6.25 mg-codeine 10 10 ml PO Q6H PRN cough #118 mL 12/13/23 02/24/24 mg/5 mL syrup Previous Rx's ?Medication ?Instructions ?Recorded benzonatate 200 mg capsule 200 mg PO TID PRN #30 caps 12/13/23 prednisone 20 mg tablet See Taper PO BID #41 tabs 12/13/23 promethazine 6.25 mg-codeine 10 10 ml PO Q6H PRN cough #118 mL 12/13/23 mg/5 mL syrup Allergies Allergy/AdvReac Type Severity Reaction Status Date / Time No Known Allergies Allergy Verified 02/24/24 10:49 General CLARIBEL: 3 Review of Systems Constitutional Constitutional: Reports as per HPI, Denies chills, Denies fever(s) and Denies headache(s) Eyes Eyes: Denies change in vision ENT Ears, Nose, Mouth, and Throat: Denies headache(s) Cardiovascular Cardiovascular: Reports as per HPI and Denies dyspnea Respiratory Respiratory: Reports as per HPI, Denies chest congestion, Denies cough and Denies dyspnea Gastrointestinal Gastrointestinal: Reports as per HPI, Denies abdominal pain, Denies diarrhea, Denies nausea and Denies vomiting Genitourinary Genitourinary: Denies system reviewed and no additional complaints, except as documented (denies change in urinary habits) Musculoskeletal Musculoskeletal: Reports as per HPI and Denies back pain Integumentary/Breasts Skin/Breast: Reports as per HPI and Denies rash Neurologic Neurologic: Reports as per HPI and Denies headache(s) Exam Const General: cooperative, healthy appearing, comfortable, no acute distress and well developed Nutritional Appearance: average body habitus and well nourished Orientation: alert, awake and oriented x3 HENMT Head: normal to inspection Ears: hearing grossly normal bilaterally Chest Chest: normal inspection of the chest, normal palpation of entire chest wall and no crepitus Resp Effort & Inspection: normal respiratory effort, able to speak in complete sentences and no respiratory distress Auscultation: clear to auscultation bilaterally, no rales, no rhonchi and no wheezes Cardio Rate: regular rate Rhythm: regular rhythm Heart Sounds: S1 normal and S2 normal GI Inspection: normal to inspection, no edema and non-distended Palpation: soft, no hepatosplenomegaly, not firm, no guarding, not rigid and nontender Auscultation: normal bowel sounds Back/Spine/Pelvis Back: no CVA tenderness Skin General skin exam: no rashes or lesions noted Trauma: no lacerations or abrasions Neuro General: patient alert, patient awake and patient oriented x3 Cognition: normal cognition Speech: speech normal Gait: normal gait Extrem General: normal to inspection, capillary refill normal, no pedal edema, no calf tenderness and normal gait Medical Decision Making Patient is a pleasant 78 year old male, brought in by son, with c/c of generalized weakness, episode of confusion at home. Patient has past medical history of large B cell lymphoma, currently be treated with chemotherapy was inpatient last week to receive his typical chemo regimen. He reports that typically he feels the worst about 1 week after having this regimen, aligning with today's symptoms. However, he reports that the symptoms today seem to be much more significant than they have in the past. He reports feeling generally weak which is often associated with his typical symptoms. However, he states that when trying to get breakfast this morning he suddenly became very weak, needed to lean on the counter and his had to get him a chair. He feels like while he did not actually lose consciousness, he is unclear on the events at that time. His son who is with him today, states that these more severe symptoms lasted about 2 minutes. He has since returned to his baseline although he continues to have that generalized weak and fatigued sensation. He has not had any recent changes to his medications. He denies any chest pain or shortness of breath. No of the symptoms leading up to the event. Patient does have a history of pulmonary emboli for which she is on Eliquis. No recent missed medications, has been taking all of his medications as prescribed and did take them prior to his symptoms today. He denies any headache, visual changes, sensory deficits. He denies any focal areas of weakness and feels that everything has been fairly equal bilaterally. He does not have any history of CVA. On exam, patient appears fatigued but not acutely ill. Slightly tachycardic but he does appear slightly dehydrated which may be contributing to this. Send signs are clear, normal cardiac exam. Abdomen is benign. Do not note any focal deficit on his neurologic exam. He has 2+ distal pulses. Primarily concerned at this time for side effect to his chemo regimen. However, particularly given his chronic state, considered electrolyte abnormality, ACS, TIA. His symptoms do not correlate with worsening PE as he is not had any increased shortness of breath, chest pain and has been taking his Eliquis as previously prescribed with no missed doses. Will obtain a CT/CTA of the patient's head neck. Will also obtain baseline labs and chest x-ray. Discussed this plan with the patient and his son who are in agreement. Patient is able to hydrate orally. Labs reviewed. Significant for white count of 0.54, he has been low like this intermittently during his chemotherapeutic courses. Patient has an ANC of 0.27. No bandemia. Platelet count is 32 which is lower than the previous times he stepped with his chemo. CMP significant for hypocalcemia but again, this is baseline for the patient. Other labs are unchanged from his baseline. Waiting for his urine. CT scan reviewed by radiologist: IMPRESSION: 1. No large vessel occlusion or significant stenosis on the CT angiography of the head. 2. No acute intracranial process. 3. No occlusion or significant stenosis on the CT angiography of the neck. No acute abnormality on x-ray of the his chest. As noted above, patient been having this progressively worsening side effects associate with the chemotherapy. I do not see indication of acute infection as the patient is otherwise been feeling well without any pain. No focal complaints more just this generalized feeling of unwell. Patient certainly is at high risk for infection, I will discuss further with oncology as I not see any evidence of sepsis just something like a neutropenic fever. He was initially hypothermic when he first came in but this was not taken orally and was repeated appropriately and patient was euthermic at that time. ECG does not show arrhythmia, he had no palpitations, CP, normal troponin. Patient is hydrating and eating. Will consult with his oncology team. Spoke with patient's oncology team at , Dr. Antunez. His counts are expected to drop like this more rapidly and his symptoms could worsen with subsequent doses. He is on Levo, Bactrim, Acyclovir already. She is concerned primarily associated with SE with medications. Discussed steroids had been stopped which could also be associated with this, both the longevity of being on it as well as stopping after admission. Recommended increased PO fluids. I discussed these recommendations with the patient and we discussed that his generalized weakness, fatigue and episode today is likely associated with the current chemotherapeutic regimen but is likely to persist while he is on the medications particularly as he has had this with his previous chemo around this time. Supportive care was discussed. Referral for palliative care was placed for the patient. He will continue with his prophylactic antimicrobials. He has an upcoming appointment with oncology and will keep this appointment for prompt follow-up. He is agreeable to increasing his hydration has very supportive family who also will help remind him of this. We did discuss the concern of infection given his ANC but this is not currently symptomatic, no evidence to suggest pneumonia, UTI or other infectious etiology at this time, hold off on any further evaluation for this but patient will continue to monitor for infection at home as recommended by oncology team. Strict return precautions were discussed. All of his questions and concerns were addressed and patient and family are in agreement with this plan. This documentation was generated using [employer] system, please disregard any oddities of phrase or misspellings. Quality:SDOH Health Related Social Needs: No Data to Display PFSH All Active Problems (Updated 02/24/24 @ 15:42 by ADDIE Madrigal) Hematuria (Acute) Hypocalcemia (Acute) Leukopenia (Acute) Thrombocytopenia (Chronic) Anemia (Chronic) Chemotherapy adverse reaction (Acute) Medication monitoring encounter (Acute) History of pulmonary embolism (Acute) Opacity of lung on imaging study (Acute) Large B-cell lymphoma (Acute) Wears hearing aid in both ears (Acute) Sensorineural hearing loss, bilateral (Acute) Sensory hearing loss, bilateral (Acute) Medical History (Updated 02/24/24 @ 15:42 by ADDIE Madrigal) Pneumonia Social History Smoking/Tobacco Use Status: Never Smoking risk assessment performed?: Yes Substance use type: does not use
--- NOTE | 2024-02-24 11:00 | DI.CT_ITS ---
Exam(s) CT BRAIN NECK CTA EXAM: CT BRAIN NECK CTA CLINICAL HISTORY: confusion, weakness, hx of cancer. TECHNIQUE: Imaging Protocol: Axial CT angiography was performed with multi-slice acquisition and mu lti-planar and/or 3D reconstructions. CONTRAST MATERIAL: Intravenous: Omnipaque 350 contrast volume:70 mL COMPARISON: No exams were available for comparison FINDINGS: CT Head W/O and W: Ventricles and Extra axial spaces: Normal in size and morphology for the patient's age. Hemorrhage: None. Cerebral parenchyma: No acute territorial infarct. No mass effect. No enhancing mass. Midline shift: None. Brainstem/Cerebellum: Normal. Calvarium: Normal. Visualized Paranasal sinuses/Mastoids: Clear. Soft Tissues: Unremarkable. Enhancement: Unremarkable. CTA Neck W: Common Carotid: Right: No dissection, occlusion or significant stenosis. Left: No dissection, occlusion or significant stenosis. External Carotid: Right: No occlusion or significant stenosis. Left: No occlusion or significant stenosis. Internal Carotid: Right: No dissection, occlusion or significant stenosis. Left: No dissection, occlusion or significant stenosis. Minimal atherosclerotic calcification at the origin without evidence of significant stenosis. Vertebral Artery: Right: No dissection, occlusion or significant stenosis. Left: No dissection, occlusion or significant stenosis. Lung Apices: Mild centrilobular emphysematous changes are present. Bones: Age-appropriate degenerative changes are seen in the cervical spine. Soft Tissues: Normal. Thyroid gland: Unremarkable. CTA Brain W: Internal Carotid Arteries: Normal. Anterior Cerebral Arteries: Right: No aneurysm, occlusion or significant stenosis. Left: No aneurysm, occlusion or significant stenosis. Middle Cerebral Arteries: Right: No aneurysm, occlusion or significant stenosis. Left: No aneurysm, occlusion or significant stenosis. Posterior Cerebral Arteries: Right: No aneurysm, occlusion or significant stenosis. The right posterior cerebral artery arises pr edominantly from the right posterior communicating artery. This is a normal variant. Left: No aneurysm, occlusion or significant stenosis. Vertebral Arteries: Right: No aneurysm, occlusion or significant stenosis. Left: No aneurysm, occlusion or significant stenosis. Basilar Artery: No aneurysm, occlusion or significant stenosis. IMPRESSION: 1. No large vessel occlusion or significant stenosis on the CT angiography of the head. 2. No acute intracranial process. 3. No occlusion or significant stenosis on the CT angiography of the neck. RADIATION DOSE DELIVERED: 2,074.77mGy.cm Total DLP DATA REPOSITORY: All CT scans at this facility are submitted to the National Radiology Data Registry (NRDR) Dose Index Registry (DIR) with the [employer] (ACR). RADIATION OPTIMIZATION: All CT scans at this facility use at least one of these dose optimization te chniques: automated exposure control; mA and/or kV adjustment per patient size (includes targeted exa ms where dose is matched to clinical indication); or iterative reconstruction.
--- NOTE | 2024-02-24 11:00 | DI.RAD_ITS ---
Exam(s) XR CHEST 2V PA LATERAL EXAM: XR CHEST 2V PA LATERAL CLINICAL HISTORY: dizzy TECHNIQUE: 2D digital imaging was performed of the chest. Two images were obtained. PA and lateral views were obtained. COMPARISON: CR,XR XR CHEST 2V PA LATERAL from 12/09/2023 FINDINGS: There is a port in place. MEDIASTINUM: Normal. HEART: Normal. PULMONARY VASCULATURE: Normal. LUNGS: No focal consolidating infiltrates are present. PLEURAL SPACE: No pleural effusion or pneumothorax. BONE:Within normal limits for the patient's age. OTHER FINDINGS:Normal. IMPRESSION: No acute pulmonary findings. DATA REPOSITORY: RADIATION DOSE DELIVERED:
[2024-02-24 11:38] LABS: Absolute Monocyte Count 0.03 10^3/uL (0.1-0.8); HCT 24.2 % (40.0-50.0); HGB 8.3 g/dL (13.5-17.5); MCH 34.6 pg (27.0-33.0); MCHC 34.3 % (32.0-36.0); MCV 101 fL (80-95); RDW 16.3 % (11.8-14.1); RDW-SD 60.3 fL
[2024-02-24] MEDS: Omnipaque 350 MG/ML 500 ML BTL-Imaging package IJ (11:47)
[2024-02-24] MEDS: Normal Saline - Diluent 50 ML VIAL IJ (11:49)
[2024-02-24 11:53] LABS: ALT 67 U/L (16-63); AST 22 U/L (15-37); Albumin 2.6 g/dL (3.4-5.0); Alkaline Phosphatase 76 U/L (46-116); Anion Gap 6.3 mmol/L (3-11); BUN 18 mg/dL (7-18); Bilirubin, Total 1.13 mg/dL (0.2-1.0); CO2 26.7 mmol/L (21.0-32.0); CREATININE 0.8 mg/dL (0.70-1.30); Calcium 8.1 mg/dL (8.5-10.1); Chloride 105 mmol/L (98-107); Estimated GFR 91.72 (mL/min/1.73m2); Glucose 169 mg/dL (74-106); Magnesium 1.9 mg/dL (1.8-2.4); Potassium 4.2 mmol/L (3.5-5.1); Sodium 138 mmol/L (136-145); Total Protein 4.9 g/dL (6.4-8.2); Troponin I 7 ng/L (<or=76)
[2024-02-24 12:22] LABS: Absolute Neutrophil Count 0.27 10^3/uL (1.2-6.7); WBC 0.54 10^3/uL (4.4-10.8)
[2024-02-24 12:26] LABS: Absolute Lymphocyte Count 0.22 10^3/uL (1.2-3.4); Atypical Lymphocytes % 0 %
[2024-02-24 12:27] LABS: Diff Comment Manual Differential
[2024-02-24 12:28] LABS: Platelet Count 32 10^3/uL (130-400)
[2024-02-24 12:32] LABS: Troponin I 9 ng/L (<or=76)
[2024-02-24 14:30] LABS: Bilirubin Negative (Negative); Blood Trace-intact (Negative); Clarity Clear (Clear); Glucose 250 mg/dL (Negative); Ketones Negative (Negative); Leukocyte Esterase Negative (Negative); Nitrite Negative (Negative); Urobilinogen 0.2 mg/dL (Up to 0.2)
[2024-02-24 14:36] LABS: Bacteria Negative HPF (Negative); C & S Indicated? No; Casts Negative LPF (Negative); Crystals Negative HPF (Negative); Epithelial Cells Rare HPF (Negative); Mucus Negative (Negative); RBC 0-2 HPF (0-2); WBC Negative HPF (0-5)
[2024-02-24] MEDS: Heparin 500 UNITS/5 ML SYRINGE (15:31)
[2024-02-24] MEDS: Normal Saline Flush 10 ML SYR IVP (15:57)
== END 2024-02-24 16:00 | disposition home or self-care (01) ==
PROVIDERS: Emergency Provider Physician Assistant; PCP Family Medicine
DX: T45.1X5A Adverse effect of antineoplastic and immunosuppressive drugs, initial encounter (principal); D64.9 Anemia, unspecified; D69.6 Thrombocytopenia, unspecified; D72.819 Decreased white blood cell count, unspecified; E83.51 Hypocalcemia; R31.9 Hematuria, unspecified; C83.30 Diffuse large B-cell lymphoma, unspecified site; Z79.01 Long term (current) use of anticoagulants
CPT/HCPCS: 70496; 70498; 80053; 93005; 99285; 71046; 81003; 81015; 83735; 84484; 85025; 93010; 99284; J1642

== ENCOUNTER 2024-03-18 01:06 | Outpatient (RCR) | payer MEDICARE, SELFPAY ==
[2024-02-22 08:38] LABS: HCT 26.6 % (40.0-50.0); HGB 9.2 g/dL (13.5-17.5); MCH 34.7 pg (27.0-33.0); MCHC 34.6 % (32.0-36.0); MCV 100 fL (80-95); MPV 11.1 fL (8.0-11.0); Platelet Count 154 10^3/uL (130-400); RBC 2.65 10^6/uL (4.36-5.78); RDW-SD 62.4 fL; WBC 24.88 10^3/uL (4.4-10.8)
[2024-02-22 08:56] LABS: Diff Comment Manual Differential
[2024-02-22 08:57] LABS: ALT 90 U/L (16-63); AST 32 U/L (15-37); Albumin 2.6 g/dL (3.4-5.0); Alkaline Phosphatase 91 U/L (46-116); Anion Gap 5.7 mmol/L (3-11); BUN 18 mg/dL (7-18); Bilirubin, Total 0.96 mg/dL (0.2-1.0); CO2 26.3 mmol/L (21.0-32.0); CREATININE 0.9 mg/dL (0.70-1.30); Calcium 7.6 mg/dL (8.5-10.1); Chloride 109 mmol/L (98-107); Estimated GFR 88.51 (mL/min/1.73m2); Glucose 175 mg/dL (74-106); Potassium 3.4 mmol/L (3.5-5.1); Sodium 141 mmol/L (136-145)
[2024-02-22 09:03] LABS: Absolute Lymphocyte Count 0.75 10^3/uL (1.2-3.4); Absolute Monocyte Count 0.25 10^3/uL (0.1-0.8); Absolute Neutrophil Count 23.88 10^3/uL (1.2-6.7); Anisocytosis 1+; Atypical Lymphocytes % 0 %; Bands % 1 %; Macrocytosis 1+
[2024-02-25] MEDS: Normal Saline Flush 10 ML SYR IVP (08:14)
[2024-02-25 08:50] LABS: Abs Immature Grans 0.01 10^3/uL (0.0-0.06); Absolute Eosinophil Count 0.01 10^3/uL (0.0-0.7); Absolute Lymphocyte Count 0.36 10^3/uL (1.2-3.4); Absolute Monocyte Count 0.08 10^3/uL (0.1-0.8); HCT 26.2 % (40.0-50.0); HGB 8.8 g/dL (13.5-17.5); Lymphocytes % 73.5 %; MCH 34.2 pg (27.0-33.0); MCHC 33.6 % (32.0-36.0); MCV 102 fL (80-95); Monocytes % 16.3 %; RBC 2.57 10^6/uL (4.36-5.78); RDW 15.9 % (11.8-14.1); RDW-SD 59.8 fL
[2024-02-25 09:22] LABS: ALT 62 U/L (16-63); AST 16 U/L (15-37); Albumin 2.8 g/dL (3.4-5.0); Alkaline Phosphatase 76 U/L (46-116); Anion Gap 7.8 mmol/L (3-11); BUN 19 mg/dL (7-18); Bilirubin, Total 0.73 mg/dL (0.2-1.0); CO2 26.2 mmol/L (21.0-32.0); Calcium 8.7 mg/dL (8.5-10.1); Chloride 106 mmol/L (98-107); Glucose 166 mg/dL (74-106); Potassium 4.1 mmol/L (3.5-5.1); Sodium 140 mmol/L (136-145); Total Protein 5.3 g/dL (6.4-8.2)
[2024-02-25 09:31] LABS: WBC 0.49 10^3/uL (4.4-10.8)
[2024-02-25 09:32] LABS: Absolute Neutrophil Count 0.03 10^3/uL (1.2-6.7); Platelet Count 20 10^3/uL (130-400)
[2024-02-25 09:34] LABS: Neutrophils % 6.2 %
[2024-02-25 09:35] LABS: Diff Comment Agrees w/ Instrument
[2024-02-26 12:27] VITALS: BP 116/73; PULSE 125; RESP 18; TEMP 36.6; O2SAT 99
[2024-02-26 13:20] VITALS: BP 103/60; PULSE 114; RESP 18; TEMP 36.7; O2SAT 96
[2024-02-26] MEDS: Normal Saline Flush 10 ML SYR IVP (14:11)
[2024-02-29 08:43] LABS: HCT 26.9 % (40.0-50.0); HGB 9.1 g/dL (13.5-17.5); MCH 35.1 pg (27.0-33.0); MCHC 33.8 % (32.0-36.0); MCV 104 fL (80-95); MPV 11.2 fL (8.0-11.0); RBC 2.59 10^6/uL (4.36-5.78); RDW 17.9 % (11.8-14.1); RDW-SD 65.3 fL
[2024-02-29 09:00] LABS: ALT 70 U/L (16-63); AST 46 U/L (15-37); Albumin 2.8 g/dL (3.4-5.0); Alkaline Phosphatase 108 U/L (46-116); BUN 16 mg/dL (7-18); Bilirubin, Total 0.42 mg/dL (0.2-1.0); CREATININE 1.1 mg/dL (0.70-1.30); Calcium 8.5 mg/dL (8.5-10.1); Chloride 105 mmol/L (98-107); Estimated GFR 69.57 (mL/min/1.73m2); Glucose 175 mg/dL (74-106); Potassium 4.1 mmol/L (3.5-5.1); Sodium 141 mmol/L (136-145); Total Protein 5.4 g/dL (6.4-8.2)
[2024-02-29] MEDS: Normal Saline Flush 10 ML SYR IVP (09:20)
[2024-02-29 09:43] LABS: Absolute Lymphocyte Count 3.42 10^3/uL (1.2-3.4); Absolute Monocyte Count 8.08 10^3/uL (0.1-0.8); Absolute Neutrophil Count 14.91 10^3/uL (1.2-6.7); Anisocytosis 2+; Bands % 3 %; Diff Comment Manual Differential; Macrocytosis 2+; Metamyelocytes % 9; Myelocytes % 6; Polychromasia Present
[2024-02-29 09:44] LABS: Platelet Count 84 10^3/uL (130-400)
[2024-02-29 09:47] LABS: Poikilocytes 2+
[2024-02-29 09:54] LABS: WBC 31.07 10^3/uL (4.4-10.8)
[2024-03-03] MEDS: Normal Saline Flush 10 ML SYR IVP (09:27)
[2024-03-03 10:41] LABS: ALT 70 U/L (16-63); AST 35 U/L (15-37); Alkaline Phosphatase 117 U/L (46-116); Anion Gap 10.3 mmol/L (3-11); BUN 18 mg/dL (7-18); Bilirubin, Total 0.43 mg/dL (0.2-1.0); CO2 25.7 mmol/L (21.0-32.0); CREATININE 1.1 mg/dL (0.70-1.30); Calcium 8.5 mg/dL (8.5-10.1); Chloride 107 mmol/L (98-107); Estimated GFR 69.57 (mL/min/1.73m2); Glucose 183 mg/dL (74-106); Sodium 143 mmol/L (136-145); Total Protein 5.8 g/dL (6.4-8.2)
[2024-03-03 11:07] LABS: HCT 30.7 % (40.0-50.0); HGB 9.9 g/dL (13.5-17.5); MCH 35.2 pg (27.0-33.0); MCHC 32.2 % (32.0-36.0); MCV 109 fL (80-95); MPV 9.6 fL (8.0-11.0); Nucleated RBC 5.4 % (0.0-0.3); Platelet Count 177 10^3/uL (130-400); RBC 2.81 10^6/uL (4.36-5.78); RDW 19.4 % (11.8-14.1); RDW-SD 75.1 fL; WBC 19.98 10^3/uL (4.4-10.8)
[2024-03-03 11:13] LABS: Bands % 5 %
[2024-03-03 11:16] LABS: Anisocytosis 2+; Diff Comment Manual Differential; Macrocytosis 2+; Metamyelocytes % 7; Myelocytes % 7; Polychromasia Present; Promyelocytes % 4
[2024-03-03 11:20] LABS: Absolute Neutrophil Count 12.19 10^3/uL (1.2-6.7)
[2024-03-07 08:37] LABS: HCT 29.8 % (40.0-50.0); HGB 9.8 g/dL (13.5-17.5); MCH 35.4 pg (27.0-33.0); MCHC 32.9 % (32.0-36.0); MCV 108 fL (80-95); MPV 8.9 fL (8.0-11.0); Platelet Count 403 10^3/uL (130-400); RBC 2.77 10^6/uL (4.36-5.78); RDW 19.5 % (11.8-14.1); WBC 13.57 10^3/uL (4.4-10.8)
[2024-03-07 08:38] LABS: Absolute Basophil Count 0.14 10^3/uL (0.0-0.2)
[2024-03-07] MEDS: Normal Saline Flush 10 ML SYR IVP (08:53)
[2024-03-07 08:59] LABS: ALT 70 U/L (16-63); AST 50 U/L (15-37); Albumin 2.9 g/dL (3.4-5.0); Alkaline Phosphatase 87 U/L (46-116); Anion Gap 7.2 mmol/L (3-11); BUN 18 mg/dL (7-18); Bilirubin, Total 0.55 mg/dL (0.2-1.0); CO2 26.8 mmol/L (21.0-32.0); Chloride 110 mmol/L (98-107); Glucose 135 mg/dL (74-106); Potassium 3.8 mmol/L (3.5-5.1); Sodium 144 mmol/L (136-145); Total Protein 5.3 g/dL (6.4-8.2)
[2024-03-07 09:10] LABS: Absolute Eosinophil Count 0.14 10^3/uL (0.0-0.7); Absolute Lymphocyte Count 1.63 10^3/uL (1.2-3.4); Absolute Neutrophil Count 8.68 10^3/uL (1.2-6.7); Bands % 4 %; Metamyelocytes % 2; Myelocytes % 3
[2024-03-07 09:16] LABS: Absolute Monocyte Count 2.04 10^3/uL (0.1-0.8); Diff Comment Manual Differential; Macrocytosis 2+
[2024-03-07 10:18] LABS: Promyelocytes % 2
[2024-03-18] MEDS: Normal Saline Flush 10 ML SYR IVP (09:21)
== END 2024-03-19 23:59 | disposition home or self-care (01) ==
LOC: INF 01:06
PROVIDERS: PCP Family Medicine; Visit Provider Internal Medicine Hematology & Oncology
DX: C83.32 Diffuse large B-cell lymphoma, intrathoracic lymph nodes (principal)
CPT/HCPCS: 36430; 36591; 80053; 86850; 86900; 86901; 85025; P9035

== ENCOUNTER 2024-04-18 02:09 | Outpatient (RCR) | payer MEDICARE, SELFPAY ==
[2024-03-18 08:34] LABS: Basophils % 0.1 %; Eosinophils % 0.1 %; HGB 9.7 g/dL (13.5-17.5); Lymphocytes % 3.8 %
[2024-03-18 08:36] LABS: Abs Immature Grans 2.01 10^3/uL (0.0-0.06); Absolute Monocyte Count 0.03 10^3/uL (0.1-0.8); HCT 29.1 % (40.0-50.0); Immature Grans % 13.1 %; MCH 35.4 pg (27.0-33.0); MCHC 33.3 % (32.0-36.0); MCV 106 fL (80-95); MPV 12.5 fL (8.0-11.0); Monocytes % 0.2 %; RBC 2.74 10^6/uL (4.36-5.78); RDW 16.1 % (11.8-14.1); RDW-SD 62.9 fL
[2024-03-18 08:39] LABS: Absolute Basophil Count 0.02 10^3/uL (0.0-0.2); Absolute Eosinophil Count 0.02 10^3/uL (0.0-0.7); Absolute Lymphocyte Count 0.59 10^3/uL (1.2-3.4); Absolute Neutrophil Count 12.74 10^3/uL (1.2-6.7)
[2024-03-18 08:51] LABS: Platelet Count 57 10^3/uL (130-400)
[2024-03-18 08:53] LABS: Macrocytosis 1+; Neutrophils % 82.7 %
[2024-03-20 00:29] VITALS: BP 103/60; PULSE 114; RESP 18; TEMP 36.7
[2024-03-21] MEDS: Normal Saline Flush 10 ML SYR IVP (07:54)
[2024-03-21 08:13] LABS: Absolute Monocyte Count 0.03 10^3/uL (0.1-0.8); HCT 28.6 % (40.0-50.0); HGB 9.6 g/dL (13.5-17.5); MCH 35.4 pg (27.0-33.0); MCHC 33.6 % (32.0-36.0); MCV 106 fL (80-95); RBC 2.71 10^6/uL (4.36-5.78); RDW 15.3 % (11.8-14.1); RDW-SD 59.3 fL
[2024-03-21 08:44] LABS: Absolute Lymphocyte Count 0.45 10^3/uL (1.2-3.4); Absolute Neutrophil Count 0.01 10^3/uL (1.2-6.7); Platelet Count 17 10^3/uL (130-400); WBC 0.49 10^3/uL (4.4-10.8)
[2024-03-21 08:45] LABS: Anisocytosis 2+; Diff Comment Manual Differential; Macrocytosis 2+
[2024-03-21 14:06] VITALS: BP 145/59; PULSE 129; RESP 17; TEMP 35.8; O2SAT 99
[2024-03-21 14:35] VITALS: BP 137/73; PULSE 114; RESP 17; TEMP 36.2; O2SAT 99
[2024-03-24 08:23] LABS: Abs Immature Grans 1.41 10^3/uL (0.0-0.06); HCT 29.5 % (40.0-50.0); HGB 9.6 g/dL (13.5-17.5); MCH 34.3 pg (27.0-33.0); MCHC 32.5 % (32.0-36.0); MCV 105 fL (80-95); RDW 15.4 % (11.8-14.1); RDW-SD 60.2 fL; WBC 5.77 10^3/uL (4.4-10.8)
[2024-03-24] MEDS: Normal Saline Flush 10 ML SYR IVP (08:36)
[2024-03-24 08:40] LABS: ALT 52 U/L (16-63); AST 28 U/L (15-37); Albumin 2.9 g/dL (3.4-5.0); Alkaline Phosphatase 69 U/L (46-116); Anion Gap 8.6 mmol/L (3-11); BUN 15 mg/dL (7-18); CO2 26.4 mmol/L (21.0-32.0); CREATININE 1.1 mg/dL (0.70-1.30); Calcium 8.3 mg/dL (8.5-10.1); Chloride 106 mmol/L (98-107); Estimated GFR 69.57 (mL/min/1.73m2); Glucose 160 mg/dL (74-106); Potassium 3.9 mmol/L (3.5-5.1); Sodium 141 mmol/L (136-145); Total Protein 5.5 g/dL (6.4-8.2)
[2024-03-24 08:49] LABS: Absolute Basophil Count 0.06 10^3/uL (0.0-0.2); Absolute Eosinophil Count 0.12 10^3/uL (0.0-0.7); Absolute Lymphocyte Count 1.27 10^3/uL (1.2-3.4); Absolute Monocyte Count 1.62 10^3/uL (0.1-0.8); Absolute Neutrophil Count 2.08 10^3/uL (1.2-6.7); Bands % 4 %; Metamyelocytes % 4; Myelocytes % 4; Promyelocytes % 2
[2024-03-24 08:50] LABS: Diff Comment Manual Differential; Hypochromasia 2+; Macrocytosis 2+; Other Cells % 1
[2024-03-24 08:51] LABS: Platelet Count 54 10^3/uL (130-400); Polychromasia Present
[2024-03-28] MEDS: Normal Saline Flush 10 ML SYR IVP (08:15)
[2024-03-28 08:26] LABS: Abs Immature Grans 3.68 10^3/uL (0.0-0.06); MCH 35.3 pg (27.0-33.0); MCHC 33.3 % (32.0-36.0); MCV 106 fL (80-95); MPV 9.9 fL (8.0-11.0); Platelet Count 182 10^3/uL (130-400); RBC 2.83 10^6/uL (4.36-5.78); RDW 16.9 % (11.8-14.1); RDW-SD 64.3 fL; WBC 14.66 10^3/uL (4.4-10.8)
[2024-03-28 08:39] LABS: ALT 52 U/L (16-63); AST 40 U/L (15-37); Albumin 2.9 g/dL (3.4-5.0); Alkaline Phosphatase 95 U/L (46-116); Anion Gap 8.2 mmol/L (3-11); BUN 13 mg/dL (7-18); Bilirubin, Total 0.41 mg/dL (0.2-1.0); CO2 26.8 mmol/L (21.0-32.0); CREATININE 0.9 mg/dL (0.70-1.30); Calcium 8.5 mg/dL (8.5-10.1); Chloride 106 mmol/L (98-107); Estimated GFR 88.51 (mL/min/1.73m2); Glucose 162 mg/dL (74-106); Potassium 3.8 mmol/L (3.5-5.1); Sodium 141 mmol/L (136-145); Total Protein 5.6 g/dL (6.4-8.2)
[2024-03-28 08:49] LABS: Absolute Lymphocyte Count 1.91 10^3/uL (1.2-3.4); Absolute Monocyte Count 1.32 10^3/uL (0.1-0.8); Absolute Neutrophil Count 9.24 10^3/uL (1.2-6.7); Atypical Lymphocytes % 4 %; Bands % 13 %; Metamyelocytes % 3
[2024-03-28 08:50] LABS: Macrocytosis 1+; Myelocytes % 11; Polychromasia Present; Promyelocytes % 1
[2024-03-31] MEDS: Normal Saline Flush 10 ML SYR IVP (07:56)
[2024-03-31 08:12] LABS: Abs Immature Grans 1.47 10^3/uL (0.0-0.06); Absolute Basophil Count 0.16 10^3/uL (0.0-0.2); Absolute Eosinophil Count 0.01 10^3/uL (0.0-0.7); Absolute Lymphocyte Count 1.76 10^3/uL (1.2-3.4); Absolute Monocyte Count 1.46 10^3/uL (0.1-0.8); Basophils % 1.2 %; Eosinophils % 0.1 %; HCT 31.9 % (40.0-50.0); HGB 10.3 g/dL (13.5-17.5); Immature Grans % 11.2 %; Lymphocytes % 13.4 %; MCH 34.9 pg (27.0-33.0); MCHC 32.3 % (32.0-36.0); MCV 108 fL (80-95); MPV 8.8 fL (8.0-11.0); Monocytes % 11.1 %; Nucleated RBC 1.5 % (0.0-0.3); Platelet Count 404 10^3/uL (130-400); RBC 2.95 10^6/uL (4.36-5.78); RDW-SD 66.5 fL; WBC 13.15 10^3/uL (4.4-10.8)
[2024-03-31 08:17] LABS: Absolute Neutrophil Count 8.28 10^3/uL (1.2-6.7)
[2024-03-31 08:29] LABS: Macrocytosis 1+
[2024-04-04] MEDS: Normal Saline Flush 10 ML SYR IVP (08:24)
[2024-04-04 08:51] LABS: Absolute Basophil Count 0.04 10^3/uL (0.0-0.2); Absolute Lymphocyte Count 1.12 10^3/uL (1.2-3.4); Absolute Monocyte Count 1.38 10^3/uL (0.1-0.8); Absolute Neutrophil Count 5.89 10^3/uL (1.2-6.7); Basophils % 0.4 %; HCT 33.9 % (40.0-50.0); HGB 10.9 g/dL (13.5-17.5); Immature Grans % 5.6 %; Lymphocytes % 12.5 %; MCHC 32.2 % (32.0-36.0); MCV 109 fL (80-95); MPV 8.4 fL (8.0-11.0); Monocytes % 15.5 %; Nucleated RBC 0.6 % (0.0-0.3); Platelet Count 475 10^3/uL (130-400); RBC 3.11 10^6/uL (4.36-5.78); RDW 16.3 % (11.8-14.1); WBC 8.93 10^3/uL (4.4-10.8)
[2024-04-04 09:07] LABS: ALT 68 U/L (16-63); AST 47 U/L (15-37); Albumin 2.9 g/dL (3.4-5.0); Alkaline Phosphatase 78 U/L (46-116); Anion Gap 9.1 mmol/L (3-11); BUN 15 mg/dL (7-18); Bilirubin, Total 0.41 mg/dL (0.2-1.0); CO2 26.9 mmol/L (21.0-32.0); CREATININE 0.8 mg/dL (0.70-1.30); Calcium 8.2 mg/dL (8.5-10.1); Chloride 109 mmol/L (98-107); Estimated GFR 91.15 (mL/min/1.73m2); Glucose 132 mg/dL (74-106); Potassium 3.6 mmol/L (3.5-5.1); Sodium 145 mmol/L (136-145); Total Protein 5.6 g/dL (6.4-8.2)
[2024-04-04 09:19] LABS: Diff Comment Agrees w/ Instrument; Macrocytosis 2+; Polychromasia Present
[2024-04-14] MEDS: Normal Saline Flush 10 ML SYR IVP (08:23)
[2024-04-14 08:36] LABS: Abs Immature Grans 0.36 10^3/uL (0.0-0.06); HCT 31.1 % (40.0-50.0); HGB 10.5 g/dL (13.5-17.5); MCH 34.8 pg (27.0-33.0); MCHC 33.8 % (32.0-36.0); MCV 103 fL (80-95); RBC 3.02 10^6/uL (4.36-5.78); RDW 14.7 % (11.8-14.1); RDW-SD 55.7 fL; WBC 2.91 10^3/uL (4.4-10.8)
[2024-04-14 08:55] LABS: ALT 104 U/L (16-63); AST 36 U/L (15-37); Alkaline Phosphatase 73 U/L (46-116); Anion Gap 7.4 mmol/L (3-11); BUN 14 mg/dL (7-18); Bilirubin, Total 1.63 mg/dL (0.2-1.0); CO2 28.6 mmol/L (21.0-32.0); CREATININE 0.9 mg/dL (0.70-1.30); Calcium 7.9 mg/dL (8.5-10.1); Chloride 104 mmol/L (98-107); Estimated GFR 87.96 (mL/min/1.73m2); Glucose 164 mg/dL (74-106); Potassium 3.9 mmol/L (3.5-5.1); Sodium 140 mmol/L (136-145); Total Protein 5.2 g/dL (6.4-8.2)
[2024-04-14 09:42] LABS: Absolute Basophil Count 0.03 10^3/uL (0.0-0.2); Absolute Lymphocyte Count 0.47 10^3/uL (1.2-3.4); Absolute Neutrophil Count 2.18 10^3/uL (1.2-6.7); Atypical Lymphocytes % 6 %; Bands % 2 %; Diff Comment Manual Differential; Macrocytosis 1+; Metamyelocytes % 7; Myelocytes % 1
[2024-04-14 09:47] LABS: Platelet Count 26 10^3/uL (130-400)
[2024-04-18] MEDS: Normal Saline Flush 10 ML SYR IVP (08:32)
[2024-04-18 08:49] LABS: Abs Immature Grans 0.07 10^3/uL (0.0-0.06); Absolute Basophil Count 0.02 10^3/uL (0.0-0.2); HGB 10.3 g/dL (13.5-17.5); MCH 34.4 pg (27.0-33.0); MCHC 33.2 % (32.0-36.0); MCV 104 fL (80-95); RBC 2.99 10^6/uL (4.36-5.78); RDW-SD 53.7 fL
[2024-04-18 09:36] LABS: ALT 59 U/L (16-63); AST 23 U/L (15-37); Alkaline Phosphatase 70 U/L (46-116); Anion Gap 11.3 mmol/L (3-11); BUN 15 mg/dL (7-18); Bilirubin, Total 0.62 mg/dL (0.2-1.0); CO2 25.7 mmol/L (21.0-32.0); CREATININE 1.1 mg/dL (0.70-1.30); Calcium 8.5 mg/dL (8.5-10.1); Chloride 102 mmol/L (98-107); Estimated GFR 69.14 (mL/min/1.73m2); Glucose 187 mg/dL (74-106); Potassium 3.9 mmol/L (3.5-5.1); Sodium 139 mmol/L (136-145); Total Protein 5.5 g/dL (6.4-8.2)
[2024-04-18 09:40] LABS: Absolute Lymphocyte Count 0.61 10^3/uL (1.2-3.4); Absolute Monocyte Count 0.25 10^3/uL (0.1-0.8); Atypical Lymphocytes % 0 %; Bands % 0 %
[2024-04-18 09:42] LABS: Diff Comment Manual Differential; Metamyelocytes % 0; Myelocytes % 0; Other Cells % 2; Promyelocytes % 0
[2024-04-18 09:49] LABS: Absolute Neutrophil Count 0.15 10^3/uL (1.2-6.7)
[2024-04-18 09:50] LABS: Platelet Count 23 10^3/uL (130-400); WBC 1.05 10^3/uL (4.4-10.8)
== END 2024-04-19 23:59 | disposition home or self-care (01) ==
LOC: INF 02:09
PROVIDERS: Nurse Practitioner Adult Health; PCP Family Medicine; Visit Provider Internal Medicine Hematology & Oncology
DX: C83.32 Diffuse large B-cell lymphoma, intrathoracic lymph nodes (principal)
CPT/HCPCS: 36430; 36591; 80053; 86850; 86900; 86901; 85025; P9035

== ENCOUNTER 2024-04-22 01:14 | Outpatient (RCR) | payer MEDICARE, SELFPAY ==
[2024-04-20 00:12] VITALS: BP 103/60; PULSE 114; RESP 18; TEMP 36.7
[2024-04-22 08:40] LABS: HCT 32.6 % (40.0-50.0); HGB 10.5 g/dL (13.5-17.5); MCH 34.5 pg (27.0-33.0); MCHC 32.2 % (32.0-36.0); MCV 107 fL (80-95); MPV 10.6 fL (8.0-11.0); RBC 3.04 10^6/uL (4.36-5.78); RDW 15.8 % (11.8-14.1); WBC 21.46 10^3/uL (4.4-10.8)
[2024-04-22 08:55] LABS: Absolute Basophil Count 0.21 10^3/uL (0.0-0.2); Absolute Lymphocyte Count 1.29 10^3/uL (1.2-3.4); Absolute Monocyte Count 0.86 10^3/uL (0.1-0.8); Absolute Neutrophil Count 15.45 10^3/uL (1.2-6.7); Bands % 15 %; Metamyelocytes % 6; Myelocytes % 11; Platelet Count 105 10^3/uL (130-400)
[2024-04-22 08:56] LABS: Diff Comment Manual Differential; Macrocytosis 1+; Polychromasia Present
[2024-04-22 08:57] LABS: ALT 62 U/L (16-63); AST 49 U/L (15-37); Alkaline Phosphatase 94 U/L (46-116); Anion Gap 7.6 mmol/L (3-11); BUN 14 mg/dL (7-18); Bilirubin, Total 0.35 mg/dL (0.2-1.0); CO2 28.4 mmol/L (21.0-32.0); CREATININE 0.9 mg/dL (0.70-1.30); Calcium 8.3 mg/dL (8.5-10.1); Chloride 107 mmol/L (98-107); Estimated GFR 87.96 (mL/min/1.73m2); Glucose 148 mg/dL (74-106); Potassium 3.8 mmol/L (3.5-5.1); Sodium 143 mmol/L (136-145); Total Protein 5.4 g/dL (6.4-8.2)
[2024-04-22] MEDS: Normal Saline Flush 10 ML SYR IVP ×2 (09:13→09:35)
== END 2024-05-20 23:59 | disposition home or self-care (01) ==
LOC: INF 01:14
PROVIDERS: Nurse Practitioner Adult Health; PCP Family Medicine; Visit Provider Internal Medicine Hematology & Oncology
DX: C83.32 Diffuse large B-cell lymphoma, intrathoracic lymph nodes (principal)
CPT/HCPCS: 36591; 80053; 86850; 86900; 86901; 85025

== ENCOUNTER 2024-06-17 13:00 | Outpatient (RCR) | payer MEDICARE, SELFPAY ==
[2024-05-30] MEDS: Normal Saline Flush 10 ML SYR IVP (12:23)
[2024-05-30 12:38] LABS: HCT 42.3 % (40.0-50.0); HGB 13.6 g/dL (13.5-17.5); MCH 32.9 pg (27.0-33.0); MCHC 32.2 % (32.0-36.0); MCV 102 fL (80-95); MPV 9.3 fL (8.0-11.0); Platelet Count 194 10^3/uL (130-400); RBC 4.14 10^6/uL (4.36-5.78); RDW 13.5 % (11.8-14.1); RDW-SD 51.6 fL; WBC 3.05 10^3/uL (4.4-10.8)
[2024-05-30 12:56] LABS: ALT 481 U/L (16-63); AST 438 U/L (15-37); Albumin 2.9 g/dL (3.4-5.0); Alkaline Phosphatase 153 U/L (46-116); BUN 16 mg/dL (7-18); Bilirubin, Total 0.76 mg/dL (0.2-1.0); CREATININE 0.9 mg/dL (0.70-1.30); Calcium 8.9 mg/dL (8.5-10.1); Chloride 107 mmol/L (98-107); Estimated GFR 87.96 (mL/min/1.73m2); Glucose 130 mg/dL (74-106); LDH 268 U/L (85-227); Potassium 3.8 mmol/L (3.5-5.1); Sodium 141 mmol/L (136-145); Total Protein 5.7 g/dL (6.4-8.2)
[2024-05-30 13:00] LABS: Absolute Basophil Count 0.06 10^3/uL (0.0-0.2); Absolute Eosinophil Count 0.03 10^3/uL (0.0-0.7); Absolute Lymphocyte Count 1.71 10^3/uL (1.2-3.4); Absolute Monocyte Count 0.43 10^3/uL (0.1-0.8); Absolute Neutrophil Count 0.82 10^3/uL (1.2-6.7); Atypical Lymphocytes % 14 %; Bands % 2 %; Diff Comment Manual Differential; RBC Morphology Normal
[2024-06-01 19:06] LABS: HBV DNA Detect/Quant, PCR 80500 IU/mL (Undetected)
[2024-06-17] MEDS: Normal Saline Flush 10 ML SYR IVP (13:11)
== END 2024-06-17 23:59 | disposition home or self-care (01) ==
LOC: INF 13:00
PROVIDERS: PCP Family Medicine; Visit Provider Internal Medicine Hematology & Oncology
DX: C83.38 Diffuse large B-cell lymphoma, lymph nodes of multiple sites (principal); B16.9 Acute hepatitis B without delta-agent and without hepatic coma
CPT/HCPCS: 36591; 80053; 87517; 96523; 83615; 85025

== ENCOUNTER 2024-06-20 01:40 | Outpatient (RCR) | payer MEDICARE, SELFPAY ==
[2024-06-20] MEDS: Normal Saline Flush 10 ML SYR IVP (10:52)
[2024-06-20 11:29] LABS: ALT 849 U/L (16-63); Albumin 2.6 g/dL (3.4-5.0); Alkaline Phosphatase 274 U/L (46-116); Anion Gap 7.8 mmol/L (3-11); BUN 13 mg/dL (7-18); Bilirubin, Total 5.03 mg/dL (0.2-1.0); CO2 27.2 mmol/L (21.0-32.0); CREATININE 0.8 mg/dL (0.70-1.30); Calcium 8.7 mg/dL (8.5-10.1); Chloride 104 mmol/L (98-107); Estimated GFR 91.15 (mL/min/1.73m2); Glucose 163 mg/dL (74-106); Potassium 4.1 mmol/L (3.5-5.1); Sodium 139 mmol/L (136-145); Total Protein 5.5 g/dL (6.4-8.2)
[2024-06-20 11:30] LABS: AST 1013 U/L (15-37)
== END 2024-07-18 23:59 | disposition home or self-care (01) ==
LOC: INF 01:40
PROVIDERS: PCP Family Medicine; Visit Provider Internal Medicine Hematology & Oncology
DX: Z86.19 Personal history of other infectious and parasitic diseases (principal)
CPT/HCPCS: 36591; 80053